=== PATIENT | male | born 1950 | race Caucasian/White ===

== ENCOUNTER → 2024-04-05 11:22 | Outpatient (REF) | payer OTHER, SELFPAY ==
--- NOTE | 2024-04-05 12:06 | CARDSERVLU ---
Echocardiogram with Lumason completed after protocol screening completed. Allergies verified.
Patent IV site: __new start 1st attempt RH 22 P___
IV site flushed with 0.9% NaCl pre and post administration.
Diluted bolus method utilized to enhance visualization of ventricular bain.
Total volume given: __3.5__ mL
Patient tolerated all procedures well without complications.
== END ==
LOC: RCS 11:22
PROVIDERS: ATTENDING PHYSICIAN Internal Medicine Cardiovascular Disease; FAMILY PHYSICIAN Family Medicine
DX: I49.3 Ventricular premature depolarization (principal); I47.29 Other ventricular tachycardia
CPT/HCPCS: 93306; Q9950

== ENCOUNTER 2024-04-22 06:43 | Day surgery (SDC) | payer OTHER, SELFPAY ==
[2024-04-19 09:16] VITALS: BMI 41.9
--- NOTE | 2024-04-19 09:44 | HPS.HSE ---
Family Physician
-
Family Physician: Matthew Moura
Chief Complaint
-
Cardiomyopathy.
History of Present Illness
The patient is a 73 year old male presenting today for newly diagnosed cardiomyopathy. He has a history of nonsustained ventricular tachycardia and frequent PVCs and PACs for which he experiences intermittent palpitations and shortness of
breath with bending over. He is on current pharmacological therapy with Metoprolol Succinate. He presented to the office in December 2023 asking to decrease the dosing of his Metoprolol. He also at that visit inquired about a cardiac catheterization
given his brother's recent diagnosis of severe coronary artery disease which required a cardiac bypass. Given all of this, the patient was advised to get an echocardiogram. His echocardiogram on 04/05/2024 revealed a moderately reduced left
ventricular ejection fraction of 35% (previously 55% on echocardiogram February 2023) and possible LAD territory hypokinesis. With these findings, it it recommended he proceed with a left cardiac catheterization at this time. He denies any current
complaints today such as chest pain, shortness of breath at rest, nausea, vomiting, diarrhea, lightheadedness, dizziness, cough, sore throat, or fever.
Medical History
Past Medical History
Past Medical History: Reports Other
Additional Past Medical History:
1. Cardiomyopathy, ejection fraction 35% per echocardiogram 04/05/2024.
2. Hypertension.
3. Hyperlipidemia.
4. Nonsustained ventricular tachycardia, on Metoprolol Succinate.
5. PACs and PVCs.
6. Right bundle branch block.
7. Mild mitral regurgitation.
8. Venous varicosities.
9. Chronic kidney disease stage 3.
10. Non-insulin dependent diabetes.
11. Colon polyps.
12. Remote diverticulitis.
13. Recurrent nephrolithiasis.
14. Remote bowel obstruction.
15. Lower GI bleed, approximately 5 years ago.
16. Probable TIA 2014.
17. Multilevel degenerative disc disease.
18. Osteoarthritis, status post bilateral total knee arthroplasty 2018.
19. Prostate cancer, 2020, status post radiation.
20. Squamous cell carcinoma, status post multiple Mohs.
21. Erectile dysfunction.
22. Mild hyperkalemia.
23. Morbidly obese, BMI 41.9.
24. History of alcohol abuse; sober since 2013.
Past Surgical History: Reports Other
Additional Past Surgical History:
1. Bilateral total knee arthroplasty.
2. Left rotator cuff repair.
3. MILD procedure.
4. Urolift.
5. Multiple lithotripsies.
6. Prostate biopsy.
7. Mohs x3.
8. Colonoscopy.
9. Endoscopy.
Social History
Tobacco: Non-smoker
Alcohol: Former (He has a history of alcohol abuse. He reportedly has been sober from alcohol over the last 10 years. )
Personal:
Living: Other (He lives in a 3 story home with his . )
Family History
Family History: Not pertinent
Allergies / Home Medications
Allergy/Medication List:
Home medications:
1. Aspirin 81 mg p.o. daily.
2. Atorvastatin 20 mg p.o. daily.
3. Cholecalciferol 125 mcg p.o. daily.
4. Jardiance 25 mg p.o. daily.
5. Mucinex 600 mg p.o. daily as needed.
6. Losartan 100 mg p.o. daily.
7. Metoprolol Succinate 100 mg p.o. daily.
8. Multivitamin 1 tablet p.o. daily.
9. Prevagen 1 dose p.o. daily.
10. Tramadol 50 mg p.o. daily as needed.
11. Super B complex 1 capsule p.o. daily.
Allergies: No known allergies.
Review of Systems
-
A 12 point ROS was completed and negative except as noted: Yes
Physical Exam
Vital Signs
Blood pressure 130/78. Heart rate 83. Respirations 18. Pulse ox 97% on room air.
Height 5 feet, 6 inches. Weight 117.8 kg. BMI 41.9.
Physical Exam
General: Well Developed, Well Nourished and No Apparent Distress
HEENT: NormoCephalic, Moist mucous membranes and Atraumatic
Respiratory: Clear
Cardiac: Regular Rhythm
GI: Soft, Non Tender, Non Distended and Other (Morbidly obese. )
Musculoskeletal: Normal Gait & Station
Skin: Warm and Dry
Neuro: AO x 3 and Nonfocal/grossly intact
Laboratory Results
-
DIAGNOSTIC STUDIES as of 04/19/2024: White blood cell count 9.1. Hemoglobin 16.3. Platelet count 232,000. Sodium 140. Potassium 5.2. BUN 40. Creatinine 2.0. Glucose 167. Calcium 9.4. AST 21. ALT 25. Albumin 4.2.
EKG 04/19/2024: Accelerated idioventricular rhythm. Right bundle branch block. T wave abnormality, consider inferolateral ischemia.
Echocardiogram 04/05/2024: Normal-appearing LV size with moderately reduced systolic function. Left ventricular ejection fraction is approximate 35% by visual estimation. Poor endocardial definition with possible LAD territory hypokinesis. Normal
right ventricular size and function. Mild mitral regurgitation. Compared to prior from February 27, 2023, ejection fraction is now moderately reduced estimated at approximately 35%, previously 55% with new possible LAD territory wall motion
abnormality.
Impression/Plan
-
IMPRESSION/PLAN:
1. Cardiomyopathy: The patient is in need of a left cardiac catheterization with Dr. Ar Joaquin on 04/22/2024. The benefits and risks of the procedure have been explained to the patient. The patient understands these risks and wishes to
proceed. He is aware to continue his baby Aspirin up to and including the morning of his catheterization. He will hold Jardiance pre-operatively as advised by his cardiology office.
[2024-04-19 10:03] LABS: % Basophils 0.9 % (0-2); % Eosinophils 1.5 % (0-6); % Immature Granulocytes 0.7 % (0-0.5); % Lymphocytes 24.7 % (20.5-51.1); % Monocytes 8.9 % (1.7-9.3); % Neutrophils 63.3 % (42.2-75.2); Absolute Basophils 0.1 10^3/uL (0-0.2); Absolute Eosinophils 0.1 10^3/uL (0-0.7); Absolute Immature Granulocytes 0.1 10^3/uL (0-0.05); Absolute Lymphocytes 2.2 10^3/uL (1.2-3.4); Absolute Monocytes 0.8 10^3/uL (0.1-0.6); Absolute Neutrophils 5.7 10^3/uL (1.4-6.5); Hematocrit 49.7 % (39.0-52.0); Hemoglobin 16.3 g/dL (13.0-18.0); Mean Corp Hgb Conc. 32.8 g/dL (33.0-37.0); Mean Corpuscular Hgb 30.4 pg (27.0-31.0); Mean Corpuscular Volume 92.7 fL (80.0-94.0); Mean Platelet Volume 10.6 fL (7.4-10.4); Nucleated Red Blood Cells % 0 % (-); Platelet Count 232 10^3/uL (130-400); Red Blood Cell Count 5.36 10^6/uL (4.70-6.10); Red Cell Dist. Width 13.9 % (11.5-14.5); White Blood Cell Count 9.1 10^3/uL (4.8-10.8)
[2024-04-19 10:23] LABS: ALT (SGPT) 25 U/L (0-50); AST (SGOT) 21 U/L (17-59); Albumin 4.2 g/dl (3.5-5.0); Alkaline Phosphatase 62 U/L (38-126); Blood Urea Nitrogen 40 mg/dl (9-20); Calcium 9.4 mg/dl (8.4-10.2); Carbon Dioxide 22 mmol/L (22-30); Chloride 107 mmol/L (98-107); Estimated Creatinine Clearance 41 ml/min; Glucose 167 mg/dl (70-99); Potassium 5.2 mmol/L (3.5-5.1); Sodium 140 mmol/L (135-145); Total Bilirubin 0.5 mg/dl (0.2-1.3); Total Protein 6.7 g/dl (6.3-8.2); eGFR 35.02
[2024-04-22] VITALS (19 sets, daily range): BP systolic 94–156; BP diastolic 60–117; BMI 41.8
[2024-04-22 07:28] LABS: Glucose - Point of Care 156 mg/dl (70-99)
[2024-04-22 09:40] LABS: ACT-LR - POC 297 Seconds (116-155)
[2024-04-22] MEDS: NSS 1000 IV (10:00)
--- NOTE | 2024-04-22 10:11 | ITS.CL.PN ---
Binder Technician - Procedure Note
Procedure
Procedure Note:
CARDIAC CATHETERIZATION REPORT
Date of Procedure: 04/22/24
Referring: Dr. Arturo Woods MD
Indication: new cardiomyopathy
PROCEDURE:
1. Right heart catheterization
2. Left heart catheterization
3. Coronary angiography
4. IVUS left main
ACCESS:
6 Nepalese right radial artery
5 Nepalese right antecubital vein
CATHETERS:
1. 5 Nepalese balloon wedge
2. 6 Nepalese JL3.5
3. 6 Nepalese JR4
4. 6 Nepalese XB3.5 guide
HEMODYNAMIC DATA
LV 120/15 (EDP 20) mmHg
AO 119/88 (mean 102) mmHg
RA 19
RV 42/14 (EDP 20) mmHg
PA 41/27 (mean 31) mmHg
PCWP 22 mmHg
CO/CI 4.9/2.2 L/min/m2
SVR 1348 dsc*-5
PVR 2.2 Wood units
CORONARY ANGIOGRAPHY
LM: large vessel with severe 80% distal left main disease.
LAD: large vessel giving rise to a small high-rising D1/ramus, large D2. There is a focal 80% stenosis in the LAD just after D2 and diffuse moderate disease throughout the mid-distal LAD. The D2 has mild disease. There is diffuse mild-moderate
disease in the D1/ramus including a focal 70% stenosis in the proximal aspect of it's superior branch.
LCx: large vessel giving rise to a small OM1, large OM2, and small OM3. There appears to be focal, mild-moderate disease in the LCx ostium. There is a 80-90% stenosis in the proximal aspect of the large OM2. There is otherwise mild disease.
RCA: large vessel giving rise to a small RPDA and several small RPL branches. There was mild catheter damping on engagement and evidence of 50% ostial stenosis. There is otherwise diffuse mild disease.
RADIATION:
Radiation dose (mGy): 832 mGy
DAP (cm2.Gy): 59
Fluoroscopy time (minutes): 8.2
IVUS of left main
A Runthrough coronary wire was placed in the distal LCx. IVUS of the left main was performed. The catheter was unable to be passed through the distal LAD lesion, demonstrating it to be definitively severe. The proximal to mid vessel demonstrate no
significant disease.
CONCLUSIONS:
1. Severe multivessel coronary artery disease.
2. Elevated biventricular filling pressures, moderate pulmonary hypertension, and
RECOMMENDATIONS:
1. Expectant management after cardiac catheterization via [right] approach.
2. Aggressive secondary prevention of CAD.
3. Referral for CABG given relatively young age, diabetes, reduced EF, and high complexity coronary artery disease. Ideally, would receive a MCCORMICK-LAD and grafts to the large D2, large OM2, and possibly the RPDA (suggestion of moderate ostial disease
but RPDA is a small target). Percutaneous revascularization would require complex distal left main bifurcation stenting and additional stenting to the mid-LAD, OM2 and possibly ostial RCA; this would be a technically feasible but likely inferior
option to surgery. If RPDA grafting cannot be accomplished, ostial RCA stenting could be performed percutaneously down the line.
Copy to: Dr. Frederick Woods (flexible machining system machinist); Dr. Matthew Moura (PCP)
Signed: Ar Joaquin MD, PhD
--- NOTE | 2024-04-22 11:44 | PTCARENOTE ---
Dr Joaquin at pt bedside speaking to pt and pt's daughter.
== END 2024-04-22 13:20 | disposition home or self-care (01) ==
LOC: CATH 06:43
PROVIDERS: ATTENDING PHYSICIAN Student in an Organized Health Care Education/Training Program; FAMILY PHYSICIAN Family Medicine; OTHER PHYSICIAN Internal Medicine Cardiovascular Disease
DX: I25.10 Atherosclerotic heart disease of native coronary artery without angina pectoris (principal); I42.9 Cardiomyopathy, unspecified; I47.20 Ventricular tachycardia, unspecified; R06.02 Shortness of breath; I12.9 Hypertensive chronic kidney disease with stage 1 through stage 4 chronic kidney disease, or unspecified chronic kidney disease; E11.22 Type 2 diabetes mellitus with diabetic chronic kidney disease; N18.30 Chronic kidney disease, stage 3 unspecified; E78.5 Hyperlipidemia, unspecified; I45.10 Unspecified right bundle-branch block; I27.20 Pulmonary hypertension, unspecified; E66.01 Morbid (severe) obesity due to excess calories; Z68.41 Body mass index [BMI] 40.0-44.9, adult; Z85.46 Personal history of malignant neoplasm of prostate; Z85.828 Personal history of other malignant neoplasm of skin; Z79.82 Long term (current) use of aspirin; Z79.84 Long term (current) use of oral hypoglycemic drugs
CPT/HCPCS: 92978; C1769; C1894; C1887; C1753; 36415; 80053; 82962; 85025; 85347; 93005; 93458; Q9967

== ENCOUNTER → 2024-05-03 13:16 | Outpatient (REF) | payer OTHER, SELFPAY | LOC: HWRAD 13:16 | PROVIDERS: ATTENDING PHYSICIAN Thoracic Surgery (Cardiothoracic Vascular Surgery); FAMILY PHYSICIAN Family Medicine | DX: I25.10 Atherosclerotic heart disease of native coronary artery without angina pectoris (principal); Z01.818 Encounter for other preprocedural examination | CPT/HCPCS: 71250 ==

== ENCOUNTER 2024-05-18 05:06 | Inpatient (IN) | payer OTHER, SELFPAY ==
[2024-04-26 08:48] VITALS: BMI 41.0
[2024-04-26 09:47] LABS: % Basophils 0.7 % (0-2); % Eosinophils 1.8 % (0-6); % Immature Granulocytes 0.5 % (0-0.5); % Lymphocytes 21.4 % (20.5-51.1); % Monocytes 8.9 % (1.7-9.3); % Neutrophils 66.7 % (42.2-75.2); Absolute Basophils 0.1 10^3/uL (0-0.2); Absolute Eosinophils 0.2 10^3/uL (0-0.7); Absolute Immature Granulocytes 0.1 10^3/uL (0-0.05); Absolute Lymphocytes 2.2 10^3/uL (1.2-3.4); Absolute Monocytes 0.9 10^3/uL (0.1-0.6); Absolute Neutrophils 6.7 10^3/uL (1.4-6.5); Hematocrit 47.8 % (39.0-52.0); Hemoglobin 16.2 g/dL (13.0-18.0); Mean Corp Hgb Conc. 33.9 g/dL (33.0-37.0); Mean Corpuscular Hgb 31.3 pg (27.0-31.0); Mean Corpuscular Volume 92.5 fL (80.0-94.0); Mean Platelet Volume 11.1 fL (7.4-10.4); Nucleated Red Blood Cells % 0 % (-); Platelet Count 237 10^3/uL (130-400); Red Blood Cell Count 5.17 10^6/uL (4.70-6.10); Red Cell Dist. Width 14.3 % (11.5-14.5); White Blood Cell Count 10.1 10^3/uL (4.8-10.8)
[2024-04-26 09:50] LABS: INR 0.95
[2024-04-26 09:51] LABS: Urine Albumin 2+ (Neg - Trace); Urine Bilirubin Negative (Negative); Urine Character Clear (Clear); Urine Color Yellow; Urine Glucose 3+ (Negative); Urine Ketone Negative (Negative); Urine Leukocyte Negative (Negative); Urine Nitrite Negative (Negative); Urine Occult Blood Negative (Negative); Urine Specific Gravity 1.015 (<1.030); Urine Urobilinogen Negative (Neg - 1+)
[2024-04-26 09:51] LABS: APTT 28.1 Sec (23.4-35.0)
[2024-04-26 10:23] LABS: ALT (SGPT) 25 U/L (0-50); AST (SGOT) 24 U/L (17-59); Albumin 4.2 g/dl (3.5-5.0); Alkaline Phosphatase 62 U/L (38-126); Blood Urea Nitrogen 31 mg/dl (9-20); Calcium 9.5 mg/dl (8.4-10.2); Carbon Dioxide 24 mmol/L (22-30); Chloride 104 mmol/L (98-107); Direct Bilirubin 0.2 mg/dl (0.0-0.4); Estimated Creatinine Clearance 46 ml/min; Glucose 153 mg/dl (70-99); Potassium 5.2 mmol/L (3.5-5.1); Sodium 138 mmol/L (135-145); Total Bilirubin 0.7 mg/dl (0.2-1.3); Total Protein 6.7 g/dl (6.3-8.2); eGFR 39.75
[2024-04-26 10:44] LABS: Urine Amorphous Seen; Urine Squamous Cell 0-2 /LPF (Few)
[2024-04-26 10:45] LABS: Urine Hyaline Cast 0-2 /LPF (0-2)
[2024-04-26 10:46] LABS: Urine Red Blood Cell 0-2 /HPF (0-2); Urine White Cell 0-2 /HPF (0-5)
--- NOTE | 2024-04-26 11:13 | CM ---
spoke to pt in PAT, we discussed preop CABG teaching including sternal and driving restrictions. he is prev indep, lives with his in a 2 story home with 1 step to he denies any dme's. he is agreeable to a f/u visit from the ct transitional
care nurse after dc. plan is for CABG 05/18, cm role explained and all questions answered.
[2024-04-26 11:46] LABS: Glycohemoglobin (HgbA1c) 6.8 % (4.0-5.6)
[2024-05-18] VITALS (22 sets, daily range): BP systolic 79–134; BP diastolic 51–90; BMI 41.2
[2024-05-18] MEDS: BACTROBAN 2% OINTMENT 1 APPLIC NASAL ×2 (05:45→21:44)
[2024-05-18] MEDS: TOPROL XL 100 MG PO (05:45)
[2024-05-18] MEDS: PROTONIX 40 MG PO (05:45)
[2024-05-18] MEDS: MAGNESIUM OXIDE 500 MG PO (05:45)
--- NOTE | 2024-05-18 06:00 | PTCARENOTE ---
pt admitted into room 2263. VS and weight obtained. pt confirms 2 showers @ home and NPO since midnight. admission questions and med rec completed. clip prep and CHG cloth bath done. bilateral groin rash and penile rash noted--CT RADHA Reyez aware
and assessed pt at bedside. ABO drawn and sent. ordered pre-op meds given. all questions answered. at bedside. environmental health technologist to CVOR.
[2024-05-18 07:40] LABS: Urine Albumin 2+ (Neg - Trace); Urine Bilirubin Negative (Negative); Urine Character Clear (Clear); Urine Color Yellow; Urine Glucose 1+ (Negative); Urine Ketone Negative (Negative); Urine Leukocyte Negative (Negative); Urine Nitrite Negative (Negative); Urine Occult Blood Negative (Negative); Urine Urobilinogen Negative (Neg - 1+)
[2024-05-18 07:58] LABS: ACT+ - POC 107 Seconds (82-134)
[2024-05-18 07:59] LABS: B.E. - POC -4.8 mmol/L; Glucose - POC 165 mg/dl (70-99); HCO3 - POC 22 mmol/L (21-28); Hematocrit - POC 46 % PCV (42-52); Hemodilution- POC No; Hemoglobin Calculated - POC 15.6; Ionized Calcium - POC 1.25 mmol/L (1.15-1.33); Lactate - POC 1.15 mmol/L (0.36-0.75); O2 Saturation %Calculated-POC 99.4 % (94-98); PCO2 - POC 45 mmHg (35-48); PO2 - POC 172 mmHg (83-108); Potassium - POC 4.3 mmol/L (3.5-5.1); Sodium - POC 141 mmol/L (136-145); Specimen Type - POC Arterial
[2024-05-18 08:00] LABS: Urine Bacteria Few (Negative); Urine Granular Cast 0-2 /LPF (0); Urine Red Blood Cell 0-2 /HPF (0-2)
--- NOTE | 2024-05-18 08:21 | CM ---
Reviewed chart. Mr. Ybarra is in the operating room today. Prior to admission he resides with his spouse in a two story home with one step to enter. Prior to admission he was independent in ambulation and adls. He does not have any DME in the
home. Medical work-up in progress. The discharge plan is to retrun home with his spouse and a home visit by the Transitional Care Nurse when medically stable.
[2024-05-18 09:53] LABS: ACT+ - POC 643 Seconds (82-134)
[2024-05-18 10:30] LABS: ACT+ - POC 504 Seconds (82-134)
[2024-05-18 10:52] LABS: B.E. - POC 0.1 mmol/L; Glucose - POC 200 mg/dl (70-99); HCO3 - POC 27 mmol/L (21-28); Hematocrit - POC 33 % PCV (42-52); Hemodilution- POC Yes; Hemoglobin Calculated - POC 11.4; Ionized Calcium - POC 1.06 mmol/L (1.15-1.33); Lactate - POC 1.49 mmol/L (0.36-0.75); O2 Saturation %Calculated-POC 99.8 % (94-98); PCO2 - POC 56 mmHg (35-48); PO2 - POC 281 mmHg (83-108); Potassium - POC 5.3 mmol/L (3.5-5.1); Sodium - POC 139 mmol/L (136-145); Specimen Type - POC Arterial
[2024-05-18 10:57] LABS: ACT+ - POC 672 Seconds (82-134)
[2024-05-18 11:14] LABS: B.E. - POC -2.7 mmol/L; Glucose - POC 211 mg/dl (70-99); HCO3 - POC 23 mmol/L (21-28); Hematocrit - POC 38 % PCV (42-52); Hemodilution- POC Yes; Hemoglobin Calculated - POC 12.8; Ionized Calcium - POC 1.09 mmol/L (1.15-1.33); Lactate - POC 1.68 mmol/L (0.36-0.75); PCO2 - POC 43 mmHg (35-48); PO2 - POC 417 mmHg (83-108); Potassium - POC 4.7 mmol/L (3.5-5.1); Sodium - POC 139 mmol/L (136-145); Specimen Type - POC Arterial; pH - POC 7.34 (7.35-7.45)
[2024-05-18 11:21] LABS: ACT+ - POC 513 Seconds (82-134)
[2024-05-18 11:59] LABS: ACT+ - POC 435 Seconds (82-134)
[2024-05-18 12:00] LABS: B.E. - POC -3.5 mmol/L; Glucose - POC 175 mg/dl (70-99); HCO3 - POC 23 mmol/L (21-28); Hematocrit - POC 35 % PCV (42-52); Hemodilution- POC Yes; Ionized Calcium - POC 1.11 mmol/L (1.15-1.33); Lactate - POC 2.04 mmol/L (0.36-0.75); PCO2 - POC 44 mmHg (35-48); PO2 - POC 436 mmHg (83-108); POC Comment WARM; Potassium - POC 4.5 mmol/L (3.5-5.1); Sodium - POC 141 mmol/L (136-145); Specimen Type - POC Arterial; pH - POC 7.32 (7.35-7.45)
[2024-05-18 12:27] LABS: ACT+ - POC 530 Seconds (82-134)
[2024-05-18 12:28] LABS: B.E. - POC -2.5 mmol/L; Glucose - POC 188 mg/dl (70-99); HCO3 - POC 23 mmol/L (21-28); Hematocrit - POC 34 % PCV (42-52); Hemodilution- POC Yes; Hemoglobin Calculated - POC 11.4; Ionized Calcium - POC 1.07 mmol/L (1.15-1.33); Lactate - POC 3.23 mmol/L (0.36-0.75); O2 Saturation %Calculated-POC 99.6 % (94-98); PCO2 - POC 39 mmHg (35-48); PO2 - POC 191 mmHg (83-108); Potassium - POC 4.8 mmol/L (3.5-5.1); Sodium - POC 141 mmol/L (136-145); Specimen Type - POC Arterial; pH - POC 7.37 (7.35-7.45)
[2024-05-18 13:12] LABS: ACT+ - POC 93 Seconds (82-134)
[2024-05-18 13:14] LABS: B.E. - POC -5.5 mmol/L; Glucose - POC 173 mg/dl (70-99); HCO3 - POC 20 mmol/L (21-28); Hematocrit - POC 35 % PCV (42-52); Hemodilution- POC Yes; Lactate - POC 3.35 mmol/L (0.36-0.75); O2 Saturation %Calculated-POC 96.2 % (94-98); PCO2 - POC 40 mmHg (35-48); PO2 - POC 90 mmHg (83-108); POC Comment POST; Sodium - POC 143 mmol/L (136-145); Specimen Type - POC Arterial; pH - POC 7.32 (7.35-7.45)
[2024-05-18 13:27] LABS: ACT+ - POC 96 Seconds (82-134)
[2024-05-18 13:33] LABS: B.E. - POC -0.4 mmol/L; Glucose - POC 171 mg/dl (70-99); HCO3 - POC 25 mmol/L (21-28); Hematocrit - POC 34 % PCV (42-52); Hemodilution- POC Yes; Hemoglobin Calculated - POC 11.5; Ionized Calcium - POC 1.22 mmol/L (1.15-1.33); Lactate - POC 3.22 mmol/L (0.36-0.75); O2 Saturation %Calculated-POC 95.2 % (94-98); PCO2 - POC 41 mmHg (35-48); PO2 - POC 78 mmHg (83-108); Potassium - POC 3.8 mmol/L (3.5-5.1); Sodium - POC 146 mmol/L (136-145); Specimen Type - POC Arterial; pH - POC 7.39 (7.35-7.45)
[2024-05-18] MEDS: NEURONTIN PO ×2 (13:51→15:27)
[2024-05-18] MEDS: TYLENOL PO ×2 (13:52→22:21)
--- NOTE | 2024-05-18 14:07 | CON.INTV ---
Consultation
Consultation Request
Date/Time Consultation Requested: 05/18/2024-2:15 PM
Date/Time Consultation Performed: 05/18/2024-2:30 PM
Requesting Provider: Dr. Eubanks
Performing Provider: Dr. Mcleod
Reason for Consultation: Postoperative ventilator/critical care management
Medical History
-
Chief Complaint: CAD
History of Present Illness:
73-year-old obese male with a history of hypertension, hyperlipidemia, chronic kidney disease, cardiomyopathy, GI bleed, alcoholic in recovery, and diabetes found to have significant multivessel CAD and underwent CABG-pulmonary was consulted for
postoperative ventilator/critical care management 05/18/2024. Patient is seen postoperatively and he is sedated on the ventilator and review of systems is unobtainable. Operative records were reviewed, chest tube output was reviewed, pressors and
line data were all reviewed.
Past Medical History
Past Medical History: None (Hypertension. Hyperlipidemia. Renal calculi. Diabetes. Alcoholic in recovery. Prostate cancer. TIA. Chronic kidney disease stage III. GI bleed. Diverticulosis. Morbid obesity.)
Past Surgical History: None (Bilateral knee replacement 2018. UroLift 2019. Facial surgery 2021. Left rotator cuff repair. Prostate biopsy. Mohs surgery x 3. Multiple lithotripsies.)
Social History
Tobacco: Non-smoker
Alcohol: Former (None since 2013)
Drug: None
Personal:
Living: With Family
Occupational Exposures: No known asbestos exposure
Environmental Exposures: No known tuberculosis exposure
Family History
Family History: Other (Siblings with CAD. Father-CVA. Mother COPD. Brother-diabetes COPD and obesity.)
Allergies / Home Medications
Allergies
Allergy/AdvReac Type Severity Reaction Status Date / Time
No Known Allergies Allergy Verified 04/25/24 14:59
Home Medications
�Medication �Instructions �Recorded �Confirmed �Last Taken �Type
Prevagen 1 dose PO DAILY 04/15/24 05/18/24 05/12/24 History
cholecalciferol (vitamin D3) 125 125 mcg PO DAILY 04/15/24 05/18/24 05/12/24 History
mcg (5,000 unit) tablet (Vitamin
D3)
empagliflozin 25 mg tablet 25 mg PO DAILY 04/15/24 05/18/24 05/13/24 History
(Jardiance)
losartan 100 mg tablet 100 mg PO DAILY 04/15/24 05/18/24 05/14/24 History
metoprolol succinate 100 mg 100 mg PO DAILY 04/15/24 05/18/24 05/17/24 09:00 History
tablet,extended release 24 hr
multivitamin 1 tab PO DAILY 04/15/24 05/18/24 05/12/24 History
vitamin B complex 1 cap PO DAILY 04/15/24 05/18/24 05/12/24 History
aspirin 81 mg chewable tablet 81 mg PO DAILY 04/19/24 05/18/24 05/17/24 09:00 History
guaifenesin 600 mg tablet, 600 mg PO DAILYPRN PRN congestion 04/19/24 05/18/24 05/17/24 09:00 History
extended release 12 hr (Mucinex)
tramadol 50 mg tablet 50 mg PO DAILYPRN PRN pain 04/19/24 05/18/24 04/20/24 History
atorvastatin 40 mg tablet 40 mg PO QPM #90 tabs 04/22/24 05/18/24 05/17/24 18:00 Rx
fluticasone propionate 50 1 spray intranasal BIDPRN PRN 04/22/24 05/18/24 05/17/24 09:00 History
mcg/actuation nasal congestion
spray,suspension (Flonase Allergy
Relief)
nitroglycerin 0.4 mg sublingual 0.4 mg sublingual [id number] PRN 04/22/24 05/18/24 05/17/24 09:00 Rx
tablet chest pain #25 tabs
Review of Systems
-
Unable to Obtain full review of systems at this time due to: Other (Per HPI)
Vitals / Labs / Diagnostic Testing
Vital Signs
Temp Pulse Resp BP Pulse Ox
97.4 F 75 18 134/83 96
05/18/24 05:13 05/18/24 05:13 05/18/24 05:13 05/18/24 05:15 05/18/24 05:14
Diagnostic Testing:
Physical Exam
-
Exam:
Well-nourished and well-developed in no apparent distress
HEENT-atraumatic, normocephalic, oral tracheal intubation
Heart-regular rate and rhythm-no murmurs, rubs or gallops
Chest-clear to auscultation, no wheezes, crackles, median sternotomy bandage is not removed
Abdomen soft nondistended
Extremities-no cyanosis, clubbing, edema and good peripheral pulses
Integument-intact, no rashes, lesions or ecchymosis
Neurologically not alert, not oriented, not moving any of his extremities sedated on a ventilator
Assessment
-
73-year-old obese male with a history of hypertension, hyperlipidemia, chronic kidney disease, cardiomyopathy, GI bleed, alcoholic in recovery, and diabetes found to have significant multivessel CAD and underwent CABG-pulmonary was consulted for
postoperative ventilator/critical care management 05/18/2024.
Multivessel coronary artery disease with preoperative reduced EF 35%
Status post CABG x 3-Hyacinth-LAD, GSV-D2, GSV-OM-Dr. Eubanks-05/18/2024
Conditions present prior to admission:
Hypertension.
Hyperlipidemia.
Renal calculi.
Diabetes.
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
Prostate cancer.
TIA.
Chronic kidney disease stage III.
GI bleed-2019
Diverticulosis.
Colon polyps
Remote diverticulitis
Recurrent nephrolithiasis
Remote bowel obstruction
Morbid obesity.
Bilateral knee replacement 2018. UroLift 2019. Facial surgery 2021. Left rotator cuff repair. Prostate biopsy. [facility] [place]. Multiple lithotripsies.
Plan
Ventilator settings reviewed
FiO2 will be weaned
Minute ventilation will be adjusted
Arterial blood gases will be monitored
Spontaneous breathing trial will be attempted with hopeful extubation after anesthesia/sedation wear off
Pulmonary artery catheter parameters will be followed
Pressors/antihypertensive/inotropes/diuretics will be provided as needed
Monitor chest tube output
Monitor hemoglobin
Monitor platelet count and coags
Transfuse blood product if needed
CT surgery following chest tubes
Monitor blood sugar
Insulin drip per protocol
Aspiration precautions
VAP prevention protocol
DVT prophylaxis
Early nutrition
Early mobilization
Patient is at significant risk for obstructive sleep apnea-recommend outpatient evaluation-will leave information on chart
Critical care statement: A total of 55 minutes of critical care time was provided for this patient today. This includes management of ventilator, spontaneous breathing trial, arterial blood gases, pressors, of unstable vital signs, evaluation of the
patient at bedside, reviewing the patient's pertinent medical records including radiographs, microbiology, laboratory evaluations, and discussion with primary team and critical care nursing.
Diagnostic data:
CT chest 05/03/2024-severe coronary artery calcifications, no lung consolidations, effusions, pneumothorax, masses or nodules
Spirometry 04/22/2024-FEV1 1.84-64%, FVC 2.39-64%, mild to moderate restriction.
Nuclear stress test 03/12/2021-EF 50%, moderate risk study ischemia suspected
Echocardiogram 04/05/2024-EF 35%, mild mitral regurgitation,
Cardiac catheterization 04/22/2024-severe multivessel CAD, RA 19, PA 41/27, PCWP-22, cardiac index 2.2
Data Reviewed
-
PFT: Report reviewed by me
EKG: Report reviewed by me
Radiology: Image personally visualized and interpreted and Report reviewed by me
CT Scan: Report reviewed by me
Medical Tests (Nuc Med, Echo etc): Report reviewed by me
Labs: Labs reviewed by me
Old Records: Reviewed
Critical Care Time (in minutes): 55
--- NOTE | 2024-05-18 14:31 | W.CVOR.SURPR ---
CVOR Surgeon Immed Pre Op
-
I have examined this patient prior to performance of the scheduled procedure.
The patient's condition is unchanged from the time of the dictated/written History and
Physical and the patient is able to undergo the scheduled procedure.
--- NOTE | 2024-05-18 14:31 | W.IMMPOSTOP ---
Addendum entered and electronically signed by Lico Eubanks MD 05/18/24 16:30:
[id number]
Original Note:
Surgical Immed Post Op Note
-
CARDIAC SURGERY OPERATIVE NOTE:
Preoperative Dx:
MVCAD
Morbid obesity (BMI 41.1)
Cardiomyopathy w/ reduced LVEF (35%)
Mild mitral regurgitation
CKD III (baseline creat (1.6-2.0)
DM II (Hgb A1c 6.8)
BBB w/ PACs & PVCs
Postoperative Dx:
Same
Profoundly calcified coronary arteries
Procedures:
1) Median sternotomy
2) Takedown of AUGUSTO (narrow pedicle)
3) CABG x 3 (AUGUSTO to LAD, GSV to D2, GSV to OM)
4) GSV to D2 required coronary endarterectomy secondary to plaque disruption after arteriotomy
5) ELAA w/ 45mm AtriClip
Surgeon:
Lico Eubanks M.D.
Accounting Practice Manager:
Ladan Schulte P.A.-C.
Anesthesia:
Yonatan Raygoza M.D. and Alyssa WileyR.N.A.
Perfusion:
Alyssa TysonCRanjithPRanjith; XC: 143min, CPB: 100min
Findings:
AUGUSTO was a very healthy appearing vessel w/ ELD 3.5mm w/ very brisk blood flow
GSV was a healthy appearing conduit w/ ELD 3.5mm
LAD was obscured by epicardial adipose tissue throughout its course, midpoint exposure demonstrated fairly dense closely spaced calcifications. A spot amendable to bypass was present at the distal midpoint w/ posterior calcifications present
opposite the arteriotomy. ELD at this location 2.5mm, normal anterior bain.
D2 was visible on the epicardial surface. This vessel was also densely calcified throughout its course. There was a spot on its distal midpoint that appeared amenable to bypass. Controlled arteriotomy performed and anastomosis initiated. There
was plaque present in the lateral wall and heel of the vessel at the arteriotomy. This plaque had a significant fracture during completion of the anastomosis. Anastomosis taken down. Coronary endarterectomy required. Arteriotomy extending.
Anastomosis reperformed over 1.5mm shunt. Good flow on hand injection and on postop transit-time U/S flow probe assessment.
OM was visible on the epicardial surface. Scant scattered calcifications. ELD 2.5mm. Good flow on hand injection and on postop transit-time U/S flow probe assessment.
ANNA with shallow windsock morphology, excluded at its base w/ 45mm AtriClip
Post-DAVID: LVEF 35%, unchanged MR
Complications:
Plaque fracture at D2 arteriotomy requiring endarterectomy
Postoperative coagulopathy requiring PLT transfusion
Right ear w/ pressure injury from unknown source upon takedown of dressings
Transfusions:
1pk PLTS
Implants:
CT x 4 (B/L pleural, inferior mediastinal, superior mediastinal)
Epicardial pacing wires x 2 (V)
Sternal wires x 7
Sternal 'X' plate w/ 8 - 14mm screws
Sternal 'Square' plate w/ 4 - 12mm screws
Condition:
Stable/guarded to CV[facility]
Levo 4, precedex 0.5, dobutamine 3, insulin 1
80 V-paced, 97/62, CO/CI: 4.72/2.08
--- NOTE | 2024-05-18 15:00 | PTCARENOTE ---
Pt received from CVOR. Pt intubated and sedated on precedex gtt. PERRLA 3mm brisk and reactive. Unresponsive at this time. Intubated with 8.0 ETT, 21cm at the lip. SIMV 40% 12 550 5/5 POX 93%. Lungs clear anteriorly. Moderate amount of clear sputum
from oral cavity. Mediastinal chest tubes x2 y-sited to 1 atrium to -20cm suction draining red fluid. Right and left pleural chest tubes y-sited to 1 atrium to -20cm suction draining red fluid. No air leak, tidaling, crepitus noted. SR with 1st
degree AVB with rates in the 50s. BP supported with levophed. CI 1.86. PA pressures 40s/30s, CVP 14-16. Epicardial v-wire to back up 50/10/0.8 with occasional paced beats. Bilateral radial and DP pulses palpable. No edema noted. Abdomen soft, round,
obese, nontender. Hypoactive BS. [place] catheter intact draining adequate amounts of blood tinged urine. Sternal incision covered with Antibacterial dressing, small area of drainage outlined. Chest tube dressing CDI. Right groin puncture site
approximated, WILEY. Right knee incision approximated with skin glue, covered with ILA-CDI. Right IJ cordis intact with swan floated to 46cm. Right hand 20g PIV intact. CT TREE TAPPING LABORER made aware of CI, MVO2 obtained. See MAR for medication administration. See
worklist for complete nursing assessment. Post-op EKG, labs, and CXR obtained.
Gtts:
Dobutamine 3mcg/kg/min
Levophed 4mcg/min
Precedex 0.5mcg/kg/hr
NSS KVO
Insulin per Critical Care Glycemic Protocol
[2024-05-18 15:08] LABS: B.E. -4.5 mmol/L; HCO3 22.1 mmol/L (21-28); Hematocrit 36.2 % (39.0-52.0); Hemoglobin 12.2 g/dL (13.0-18.0); O2 Saturation % 96.7 % (94-98); PCO2 46 mmHg (35-48); PO2 94 mmHg (83-108); Platelet Count 127 10^3/uL (130-400); Potassium 4.4 mMOL/L (3.5-5.1); Sodium 136 mMOL/L (136-145); pH 7.29 (7.35-7.45)
[2024-05-18 15:10] LABS: Glucose - Point of Care 208 mg/dl (70-99)
--- NOTE | 2024-05-18 15:15 | PTCARENOTE ---
RT at bedside to adjust RR to 16 due to respiratory acidosis.
[2024-05-18 15:17] LABS: INR 1.25; PT 16.3 Sec (11.4-14.6)
[2024-05-18 15:18] LABS: APTT 31.4 Sec (23.4-35.0)
[2024-05-18] MEDS: PACERONE PO (15:27)
[2024-05-18] MEDS: ANCEF 10 IV ×2 (15:27)
[2024-05-18] MEDS: NSS 500 IV (15:27)
[2024-05-18] MEDS: DILAUDID 0.5 MG IV (15:27)
[2024-05-18 15:44] LABS: Mixed Venous O2 Saturation 67.3 %
[2024-05-18] MEDS: VERSED 0.5 MG IV ×2 (15:50→16:05)
--- NOTE | 2024-05-18 16:00 | PTCARENOTE ---
RT at bedside to advance ETT 2cm. Now 23cm at the lip. Repeat CXR obtained.
--- NOTE | 2024-05-18 16:00 | RESPNOTE ---
Addendum entered by Meera Valdez, RT 05/18/24 18:07:
ERROR IN DOCUMENTATION:
ETT was advanced by 2cm from 22 to 24 at the lips.
Original Note:
ETT pulled back by 2cm. now 24@ the lips.
[2024-05-18 16:06] LABS: Glucose - Point of Care 189 mg/dl (70-99)
--- NOTE | 2024-05-18 16:15 | W.PN.CD ---
Addendum entered and electronically signed by Shane Marcial MD 05/18/24 17:10:
I saw and examined the patient.
The AREA ATTENDANT's note was reviewed and I agree with the note.
Comment:
73 y/o male (follows with Dr. Woods) with hypertension, obesity, CKD, NSVT, PVC's, atrial ectopy, RBBB. OP monitor revealed AIVR as predominant rhythm. Echo done and revealed EF 35%. Cath done and showed severe multivessel coronary artery disease
and he is now s/p CABG x 3 (AUGUSTO to LAD, GSV to D2, GSV to OM), GSV to D2 required coronary endarterectomy secondary to plaque disruption after arteriotomy, ELAA w/ 45mm AtriClip- Dr. Eubanks 05/18/23. At the time of my evaluation he is intubated,
sedated, and on norepinephrine and dobutamine. We will plan to follow along and add back GDMT as tolerated. Continue routine postoperative care per CT surgery.
Original Note:
Today's Communication / Plan
-
-close post-op monitoring and care with weaning of drips and vent as tolerated per CT surgery/CVICU protocol
Impression / Plan
-
73 y/o male (follows with Dr. Woods) with hypertension, obesity, CKD, NSVT, PVC's, atrial ectopy, RBBB. OP monitor revealed AIVR as predominant rhythm. Echo done and revealed EF 35%. Cath done and showed severe multivessel coronary artery disease
and he is now s/p CABG.
Severe multivessel CAD:
-now s/p CABG x 3 (AUGUSTO to LAD, GSV to D2, GSV to OM), GSV to D2 required coronary endarterectomy secondary to plaque disruption after arteriotomy, ELAA w/ 45mm AtriClip- Dr. Eubanks 05/18/23
-intubated and ventilated post-operatively
-remains on dobutamine and Levophed post-op, both of which require intensive monitoring
-post-op EKG SB with 1st degree AVB, PVC, V paced complex, IVCD. Tele SB.
-intra-op DAVID EF 30-35%
-CT's, ulloa, pacer wire in place
-s/p 1 pk platelets
-ASA, statin, BB when able
ICM:
-EF 30-35%
-GDMT as able once recovered- on BB, ARB, Jardiance as OP
-monitor volume
hx AIVR, RBBB:
-monitor telemetry
CKD:
-monitor post-op
Obesity:
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
DM:
-post-op, on insulin per protocol
Physical Exam
Vital Signs/Labs
Vital Signs
Temp Pulse Resp BP Pulse Ox
98.0 F 55 16 109/62 98
05/18/24 16:00 05/18/24 16:10 05/18/24 16:10 05/18/24 16:00 05/18/24 16:10
05/17/24 05/18/24 05/19/24
06:59 06:59 06:59
Actual Weight 119.1 kg
PT 16.3 Sec (11.4-14.6) H 05/18/24 14:56
INR 1.25 05/18/24 14:56
APTT 31.4 Sec (23.4-35.0) 05/18/24 14:56
Magnesium Cancelled 05/18/24 14:56
Physical Exam
Constitutional: No acute distress
Cardiovascular: Rhythm & rate is regular
Respiratory: Lungs clear to auscul. and Other (intubated and ventilated)
Neuro/Psych: Other (sedated post-op)
Other: Skin (midsternal incision is CDI)
Data Reviewed
-
Date of Service: May 18, 2024
EKG: Tracing Personally Visualized and interpreted (as described in body of note)
X-Ray/CT/US/MRI/NUC/PET: Report Reviewed by me (CXR: ndotracheal tube tip is approximate 6 4.5 cm above the nydia, having been advanced approximately 2 cm. Otherwise stable appearance. No other significant interval change.)
Medical Tests (PFT, Pathology etc): Report Reviewed by me (DAVID: LVEF is 30-35%. )
Labs: Labs Reviewed by me
[2024-05-18 16:21] LABS: B.E. -6.2 mmol/L; HCO3 19.6 mmol/L (21-28); O2 Saturation % 97.3 % (94-98); PCO2 39 mmHg (35-48); PO2 114 mmHg (83-108); pH 7.31 (7.35-7.45)
[2024-05-18 16:24] LABS: Blood Urea Nitrogen 30 mg/dl (9-20); Estimated Creatinine Clearance 60 ml/min; Glucose 206 mg/dl (70-99); Magnesium 2.9 mg/dl (1.6-2.3)
[2024-05-18] MEDS: SODIUM BICARBONATE 50 MEQ IV ×2 (16:37→21:44)
[2024-05-18 17:00] LABS: Glucose - Point of Care 180 mg/dl (70-99)
[2024-05-18 17:58] LABS: Glucose - Point of Care 157 mg/dl (70-99)
[2024-05-18 18:58] LABS: Glucose - Point of Care 150 mg/dl (70-99)
[2024-05-18 19:01] LABS: B.E. -2.6 mmol/L; HCO3 23.7 mmol/L (21-28); Ionized Calcium 1.19 mMOL/L (1.15-1.33); O2 Saturation % 96.3 % (94-98); PCO2 46 mmHg (35-48); PO2 95 mmHg (83-108); Potassium 4.7 mMOL/L (3.5-5.1); pH 7.32 (7.35-7.45)
[2024-05-18 19:04] LABS: Hematocrit 37.6 % (39.0-52.0); Hemoglobin 12.6 g/dL (13.0-18.0)
[2024-05-18 19:07] LABS: Platelet Count 152 10^3/uL (130-400)
--- NOTE | 2024-05-18 19:15 | PTCARENOTE ---
pt extubated to 6L NC w/ no incident @ 1914 able to state name and and able to follow all commands
[2024-05-18 20:03] LABS: Glucose - Point of Care 148 mg/dl (70-99)
[2024-05-18] MEDS: OFIRMEV 100 IV (20:08)
[2024-05-18] MEDS: LOW STRENGTH ASPIRIN 81 MG PO (20:33)
[2024-05-18] MEDS: LR 250 ML IV (21:00)
--- NOTE | 2024-05-18 21:08 | PTCARENOTE ---
received pt from previous rn. SR with 1st degree AVB with rates in the 50s. BP supported with levophed.Epicardial v-wire to back up 45/5/1.5 with occasional paced beats.Lungs clear anteriorly. Moderate amount of clear sputum from oral cavity.
Mediastinal chest tubes x2 to -20cm suction draining red fluid. Right and left pleural chest tubes to -20cm suction draining red fluid. No air leak, tidaling, crepitus noted. Bilateral radial and DP pulses palpable. No edema noted. Abdomen soft,
round, obese, nontender. Hypoactive BS. Monaco catheter intact draining jey urine. Sternal incision covered with Antibacterial dressing, . Chest tube dressing CDI. Right groin puncture site approximated, WILEY. Right knee incision approximated with
skin glue, covered with ILA-CDI. Right IJ cordis intact with swan floated to 46cm. PIV intact.
Gtts:
Dobutamine
Levophed
Insulin per Critical Care Glycemic Protocol
[2024-05-18 21:13] LABS: Glucose - Point of Care 173 mg/dl (70-99)
[2024-05-18 21:14] LABS: Mixed Venous O2 Saturation 62.1 %
[2024-05-18 21:17] LABS: B.E. -3.8 mmol/L; HCO3 22.2 mmol/L (21-28); O2 Saturation % 97.5 % (94-98); PCO2 43 mmHg (35-48); PO2 111 mmHg (83-108); Potassium 4.9 mMOL/L (3.5-5.1); pH 7.32 (7.35-7.45)
[2024-05-18 21:18] LABS: Hematocrit 37.3 % (39.0-52.0); Hemoglobin 12.6 g/dL (13.0-18.0)
[2024-05-18] MEDS: ROXICODONE 5 MG PO (21:41)
[2024-05-18] MEDS: NEURONTIN 100 MG PO (21:43)
[2024-05-18] MEDS: SENOKOT-S PO (21:44)
[2024-05-18] MEDS: ANCEF 5 IV (21:45)
[2024-05-18] MEDS: DILAUDID 0.25 MG IV (22:58)
[2024-05-18 23:09] LABS: Glucose - Point of Care 134 mg/dl (70-99)
[2024-05-19] VITALS (32 sets, daily range): BP systolic 70–136; BP diastolic 29–91; PULSE 2–74; BMI 43.3
[2024-05-19 00:01] LABS: B.E. -1.1 mmol/L; HCO3 24.8 mmol/L (21-28); Ionized Calcium 1.19 mMOL/L (1.15-1.33); O2 Saturation % 96.4 % (94-98); PCO2 45 mmHg (35-48); PO2 94 mmHg (83-108); Potassium 4.7 mMOL/L (3.5-5.1); pH 7.35 (7.35-7.45)
[2024-05-19 00:20] LABS: Lactic Acid 1.7 mmol/L (0.7-2.0)
[2024-05-19 01:00] LABS: Glucose - Point of Care 162 mg/dl (70-99)
[2024-05-19] MEDS: CALCIUM GLUCONATE 100 IV (01:22)
[2024-05-19] MEDS: ROXICODONE 5 MG PO ×4 (01:52→17:57)
[2024-05-19 02:10] LABS: Glucose - Point of Care 138 mg/dl (70-99)
[2024-05-19 03:12] LABS: Glucose - Point of Care 115 mg/dl (70-99)
[2024-05-19] MEDS: DILAUDID 0.25 MG IV (03:16)
[2024-05-19 04:22] LABS: Glucose - Point of Care 114 mg/dl (70-99)
[2024-05-19 04:40] LABS: Mixed Venous O2 Saturation 59.4 %
[2024-05-19] MEDS: NOVOLIN R INSULIN INFUSION 100 IV (04:47)
[2024-05-19 04:48] LABS: Hematocrit 34.9 % (39.0-52.0); Hemoglobin 11.6 g/dL (13.0-18.0); Mean Corp Hgb Conc. 33.2 g/dL (33.0-37.0); Mean Corpuscular Hgb 30.9 pg (27.0-31.0); Mean Corpuscular Volume 92.8 fL (80.0-94.0); Mean Platelet Volume 10.7 fL (7.4-10.4); Platelet Count 141 10^3/uL (130-400); Red Blood Cell Count 3.76 10^6/uL (4.70-6.10); Red Cell Dist. Width 14.2 % (11.5-14.5); White Blood Cell Count 18.5 10^3/uL (4.8-10.8)
[2024-05-19 04:49] LABS: B.E. -2.7 mmol/L; HCO3 23.7 mmol/L (21-28); Ionized Calcium 1.28 mMOL/L (1.15-1.33); O2 Saturation % 95.3 % (94-98); PCO2 47 mmHg (35-48); PO2 85 mmHg (83-108); pH 7.31 (7.35-7.45)
[2024-05-19] MEDS: DOBUTREX 500 MG 250 IV (04:49)
[2024-05-19] MEDS: ANCEF 5 IV ×2 (04:50→13:40)
[2024-05-19 05:02] LABS: Glucose - Point of Care 105 mg/dl (70-99)
[2024-05-19 05:08] LABS: Blood Urea Nitrogen 37 mg/dl (9-20); Calcium 8.5 mg/dl (8.4-10.2); Carbon Dioxide 26 mmol/L (22-30); Chloride 106 mmol/L (98-107); Estimated Creatinine Clearance 42 ml/min; Glucose 115 mg/dl (70-99); Magnesium 2.7 mg/dl (1.6-2.3); Potassium 4.6 mmol/L (3.5-5.1); Sodium 138 mmol/L (135-145); eGFR 35.02
[2024-05-19] MEDS: TYLENOL 1000 MG PO ×3 (05:21→21:20)
[2024-05-19 07:09] LABS: Glucose - Point of Care 100 mg/dl (70-99)
--- NOTE | 2024-05-19 07:45 | W.PN.INTV ---
Today's Communication / Plan
Recommendations
Tolerated extubation
Wean FiO2
BiPAP if needed
Incentive spirometry
Monitor chest tube output
Wean inotropes and pressors
Increase activity
Outpatient sleep apnea workup
Continues on insulin drip and ICU status
Assessment
-
73-year-old obese male with a history of hypertension, hyperlipidemia, chronic kidney disease, cardiomyopathy, GI bleed, alcoholic in recovery, and diabetes found to have significant multivessel CAD and underwent CABG-pulmonary was consulted for
postoperative ventilator/critical care management 05/18/2024.
Multivessel coronary artery disease with preoperative reduced EF 35%
Status post CABG x 3-[place]-LAD, GSV-D2, GSV-OM-Dr. Eubanks-05/18/2024
Conditions present prior to admission:
Hypertension.
Hyperlipidemia.
Renal calculi.
Diabetes.
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
Prostate cancer.
TIA.
Chronic kidney disease stage III.
GI bleed-2019
Diverticulosis.
Colon polyps
Remote diverticulitis
Recurrent nephrolithiasis
Remote bowel obstruction
Morbid obesity.
Bilateral knee replacement 2018. UroLift 2019. Facial surgery 2021. Left rotator cuff repair. Prostate biopsy. Mohs surgery x 3. Multiple lithotripsies.
Plan
Tolerated extubation
Wean FiO2
Encourage incentive spirometry
Increase activity
Aspiration precautions
BiPAP if needed
Pulmonary artery catheter and arterial line will be removed
Pressors have been weaned
Continue to monitor chest tube output
Follow hemoglobin
Continue to follow platelet count and coags
Transfuse blood product as needed
CT surgery following chest tubes as well
Follow blood sugar
Insulin supplementation continues as needed
Early nutrition
Early mobilization
DVT prophylaxis
Patient states had sleep study 10 years ago and 'did not have sleep apnea'-reviewed associations and risks of untreated sleep apnea, willing to retest
Patient is at significant risk for obstructive sleep apnea-recommend outpatient evaluation-will leave information on chart
Critical care statement: A total of 35 minutes of critical care time was provided for this patient today. This includes management of ventilator, spontaneous breathing trial, arterial blood gases, pressors, of unstable vital signs, evaluation of the
patient at bedside, insulin drip management, BiPAP management, reviewing the patient's pertinent medical records including radiographs, microbiology, laboratory evaluations, and discussion with primary team and critical care nursing.
Diagnostic data:
CT chest 05/03/2024-severe coronary artery calcifications, no lung consolidations, effusions, pneumothorax, masses or nodules
Spirometry 04/22/2024-FEV1 1.84-64%, FVC 2.39-64%, mild to moderate restriction.
Nuclear stress test 03/12/2021-EF 50%, moderate risk study ischemia suspected
Echocardiogram 04/05/2024-EF 35%, mild mitral regurgitation,
Cardiac catheterization 04/22/2024-severe multivessel CAD, RA 19, PA 41/27, PCWP-22, cardiac index 2.2
Subjective Dataa
Subjective Data
Date of Service:
Date of Service: May 19, 2024
Chief Complaint: [employer] Follow Up, Pulmonary Follow Up and Vent Management Follow Up
Subjective:
Tolerated extubation, some mild shortness of breath, no chest pain or abdominal pain, denies significant snoring, states that he refreshed in the morning, significant nocturia, and does not complain of significant daytime somnolence
Review of Systems
General: Other (Per HPI)
Objective Data
Data Reviewed
Vital Signs / I&O / Oxygen:
Vital Signs
Temp Pulse Resp BP Pulse Ox
97.6 F 73 15 112/69 94
05/19/24 07:33 05/19/24 07:33 05/19/24 07:33 05/19/24 07:00 05/19/24 07:33
Intake and Output
05/18/24 05/19/24 05/20/24
06:59 06:59 06:59
Intake Total 2167.2 / 2229.7 155.0 / 155.0
Output Total 1025 / 1065 40 / 40
Balance 1142.2 / 1164.7 115.0 / 115.0
SaO2 [CPAP/PSV] 98
SaO2 [SIMV] 98
SaO2 94
Nasal Cannula flow liters per 2
minute
Labs/Micro/Reports
Lab Data
05/19/24 04:25
05/19/24 04:25
Laboratory Results
05/18/24 05/18/24 05/18/24
14:56 16:06 18:54
PT 16.3 H
INR 1.25
APTT 31.4
pH 7.29 L 7.31 L 7.32 L
pCO2 46 39 46
pO2 94 114 H 95
HCO3 22.1 19.6 L 23.7
O2 Delivery Level Not Reportable
05/18/24 05/18/24 05/19/24
21:01 23:52 04:26
PT
INR
APTT
pH 7.32 L 7.35 7.31 L
pCO2 43 45 47
pO2 111 H 94 85
HCO3 22.2 24.8 23.7
O2 Delivery Level
--- NOTE | 2024-05-19 08:00 | SUR.OPER ---
Assumed care of patient from grinder set up operator RN. Dozing intermittently. SR on monitor, RT IJ cordis with swan At 43 cm, Lt radial A line transducing. Lines leveled, recalibrated and flushed. Epicardial wire to VVI 45, no pacing noted at present.
Current infusions as follows: Levophed, Dobutamine, Insulin. See flowsheets for totals/titrations. 2 L NC 93%, Chest tubes x 4 to - 20 cm suction. No air leak or crepitus noted. Abdomen obese, with hypoactive bowel sounds, denies nausea.
Surgical sites c,d,i. Plus 1 general anasarca. Pulses palpable. Plan for day discussed.
[2024-05-19 08:06] LABS: B.E. -0.3 mmol/L; HCO3 25.9 mmol/L (21-28); O2 Saturation % 95.1 % (94-98); PCO2 48 mmHg (35-48); PO2 77 mmHg (83-108); pH 7.34 (7.35-7.45)
[2024-05-19] MEDS: MUCINEX PO (08:30)
--- NOTE | 2024-05-19 08:31 | W.PN.CT ---
Today's Communication / Plan
-
-pod #1
-no significant issues overnight
-nsr with frequent PACs
-CI 2.46, CO 5.59, mvO2 59.4. Drips: Dobut 3, Levo 2, Insulin
-CT outputs: 2 meds 150/210, 2 pleur 145/215 in 12/24 hrs
-wean off Dobut and Levo as tolerated
-maintain Monaco
-continue insulin
-Cr 2.0 today (1.4 on 05/18 and baseline 1.8-2)
-current meds (ASA, Plavix, Lipitor, Protonix). Holding BB, Amio d/t bradycardia. Holding Mg d/t Ckd
-encourage IS, OOB as tolerated
Assessment / Plan
-
- mv-CAD - s/p CABG x 3 ([place]O to LAD, GSV to D2, GSV to OM, Endarterectomy to SVG-D2); ELAA w/ 45mm AtriClip by Dr. Eubanks on 05/18/24, pod #1
- Post-DAVID: LVEF 35%, unchanged MR
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
- HTN/HLD
- CKD III (baseline Cr 1.6-2)
- Hx RBBB w/ PACs & PVCs, SNVT
- Class 3 obesity (BMI 41)
- Mild MR
- DM II (HgA1c 6.8)
- s/p prostate bx with urolift 2018
- hx TIA 2014
- Former alcoholic
- ED
- GI bleed 2019
- OA, s/p b/l TKA 2017
- L RTC repair
- Nephrolithiasis with multiple lithotripsies
- Acute postop blood loss anemia
- Acute postop coagulopathy - s/p 1 unit platelet
- Acute postop atelectasis
- Acute postop hypovolemia with subsequent hypervolemia
Discussed patient care with: Nursing and Care Team
Subjective
Procedure
- s/p CABG x 3 (AUG[place]O to LAD, GSV to D2, GSV to OM); ELAA w/ 45mm AtriClip by Dr. Eubanks on 05/18/24
-
Date of Service: May 19, 2024
Objective Data
-
PT 16.3 Sec (11.4-14.6) H 05/18/24 14:56
INR 1.25 05/18/24 14:56
APTT 31.4 Sec (23.4-35.0) 05/18/24 14:56
Vital Signs
Vital Signs
Temp Pulse Resp BP Pulse Ox
98.1 F 64 14 109/65 93
05/19/24 02:00 05/19/24 02:30 05/19/24 02:30 05/19/24 02:00 05/19/24 02:30
CT Intake/Output/Weight
05/18/24 05/18/24 05/19/24
06:59 18:59 06:59
Intake Total 379.7 / 1926.5 1546.8 / 1926.5
Output Total 360 / 835 475 / 835
Balance 19.7 / 1091.5 1071.8 / 1091.5
SaO2: 93
Physical Exam
-
General: Awake and AOx3
Cardiovascular: Regular rate & rhythm, No Murmurs and Rub
Respiratory: Decreased Breath Sounds
Sternum: Stable
Incision: Clean, Dry and Intact
Extremities: Edema +1 (DPs by Doppler b/l)
Abdomen: soft, nontender, + decreased bowel sounds, nondistended
Data Reviewed
-
Lab Results: Results Reviewed
Medications: Active Meds Reviewed
Chest X-Ray: Report Reviewed and Image Reviewed
ECG: Report Reviewed and Image Reviewed
[2024-05-19] MEDS: LIDOCAINE 4% PATCH 1 PATCH TOPICAL (08:48)
[2024-05-19] MEDS: PLAVIX 75 MG PO (08:48)
[2024-05-19] MEDS: LOW STRENGTH ASPIRIN 81 MG PO (08:48)
[2024-05-19] MEDS: LASIX 40 MG IV (08:48)
[2024-05-19] MEDS: SENOKOT-S 1 TABLET PO ×2 (08:48→20:17)
[2024-05-19] MEDS: NEURONTIN 100 MG PO ×3 (08:49→21:20)
[2024-05-19] MEDS: PROTONIX 40 MG PO (08:49)
[2024-05-19] MEDS: BACTROBAN 2% OINTMENT 1 APPLIC NASAL ×2 (08:49→20:17)
[2024-05-19 09:02] LABS: Glucose - Point of Care 129 mg/dl (70-99)
--- NOTE | 2024-05-19 09:20 | PTCARENOTE ---
Assumed care of patient from mid level clinician RN. Zhang intermittently. ST
[2024-05-19 11:11] LABS: Glucose - Point of Care 124 mg/dl (70-99)
--- NOTE | 2024-05-19 11:14 | W.PN.CD ---
Today's Communication / Plan
-
weaning from drips
GMDT when able
Impression / Plan
-
73 y/o male (follows with Dr. Woods) with hypertension, obesity, CKD, NSVT, PVC's, atrial ectopy, RBBB. OP monitor revealed AIVR as predominant rhythm. Echo done and revealed EF 35%. Cath done and showed severe multivessel coronary artery disease
and he is now s/p CABG.
Severe multivessel CAD:
-now s/p CABG x 3 ([place] to LAD, GSV to D2, GSV to OM), GSV to D2 required coronary endarterectomy secondary to plaque disruption after arteriotomy, ELAA w/ 45mm AtriClip- Dr. Eubanks 05/18/23
-post-op EKG SB with 1st degree AVB, PVC, IVCD. Tele: SR, PAC/s, PVC's
-intra-op DAVID EF 30-35%
-weaning from drips
-ASA 81mg daily, statin
ICM:
-EF 30-35%
-GDMT to be added back and BP and renal function allow; would start with Toprol XL
-monitor volume
hx AIVR, RBBB:
-monitor telemetry
CKD3b:
-CARLOTTA post op
Morbid obesity:
-will benefit from weight loss in intermediate
DM:
-per pimary team
Physical Exam
Vital Signs/Labs
Vital Signs
Temp Pulse Resp BP Pulse Ox
97.9 F 73 16 108/51 94
05/19/24 10:52 05/19/24 10:55 05/19/24 10:55 05/19/24 10:52 05/19/24 10:55
05/18/24 05/19/24 05/20/24
06:59 06:59 06:59
Actual Weight 119.1 kg 125.2 kg
05/19/24 04:25
05/19/24 04:25
PT 16.3 Sec (11.4-14.6) H 05/18/24 14:56
INR 1.25 05/18/24 14:56
APTT 31.4 Sec (23.4-35.0) 05/18/24 14:56
Magnesium 2.7 mg/dl (1.6-2.3) H 05/19/24 04:25
Physical Exam
Constitutional: No acute distress
EENT: Moist mucous membranes
Cardiovascular: Rhythm & rate is regular, JVD pressure is normal, Systolic murmur absent and Pedal edema present
Respiratory: Respiratory effort normal and Lungs clear to auscul.
Neuro/Psych: AO x 3
Data Reviewed
-
Date of Service: May 19, 2024
EKG: Other (Tele: NSR, PAC's, PVC's)
Labs: Labs Reviewed by me
[2024-05-19 13:13] LABS: Glucose - Point of Care 117 mg/dl (70-99)
[2024-05-19] MEDS: FLEXERIL 5 MG PO ×2 (13:38→22:05)
[2024-05-19] MEDS: NSS IV (13:41)
--- NOTE | 2024-05-19 14:21 | PTCARENOTE ---
Assist x 2 oob to chair. VSS tolerated . Minimal drainage from chest tubes with standing. Medicated with flexeril and tylenol. at bedside
--- NOTE | 2024-05-19 14:38 | W.PN.ANS.POP ---
Anesthesia Post Operative
- Anesthesia Post Op Note
Vital Signs Stable-See Nursing Note: Yes
Airway Patent: Yes
Adequate Pain Control: Yes
Change in Mental Status: No
Current Postoperative Nausea & Vomiting: No
Anesthesia Complications: No
General Anesthetic Recall: No
Unplanned Admission: No
Post Op Hydration Adequate: Yes
- -
Pt OOB to chair..resting comfortably..VSS.
[2024-05-19 15:24] LABS: Glucose - Point of Care 119 mg/dl (70-99)
--- NOTE | 2024-05-19 15:34 | PTCARENOTE ---
Assist x 2 back to bed from chair. Heart monitor alarming Pt tachy 140's , GALVAN . Settled back to SR 1degree AVB w/ BBB in 80's. BP stable. Levo remains at 2. CT LIFE ENRICHMENT ASSISTANT aware, orders obtained. Will monitor.
[2024-05-19] MEDS: CORDARONE 518 MG IV ×2 (15:44→15:58)
[2024-05-19] MEDS: CORDARONE 103 MG IV (15:44)
[2024-05-19] MEDS: LIPITOR 40 MG PO (17:58)
[2024-05-19 18:11] LABS: Glucose - Point of Care 106 mg/dl (70-99)
[2024-05-19 19:21] LABS: Hepatitis C Antibody Negative (Negative)
[2024-05-19] MEDS: DILAUDID 0.5 MG IV ×2 (20:09→23:43)
[2024-05-19 20:13] LABS: Glucose - Point of Care 122 mg/dl (70-99)
[2024-05-19] MEDS: MUCINEX 600 MG PO (20:17)
--- NOTE | 2024-05-19 21:00 | PTCARENOTE ---
Assumed care of pt from augustina RN. Pt AAOx3. Pt in 1st degree heart block w/ BBB. HR 70s. Temporary epicardial V-wires intact and set to 45/5/1.5. BP 103/74. A-line BP's not accurate. Wave-form off. Tried leveling and flushing and had multiple
nurses at bedside to help look at it and help reposition pt arm. Able to get blood return. PAPs 30-40s/20s. CVP ~14. +1 generalized edema. Palpable pulses throughout. Pt on 2 L NC. POX 93%. Lung sounds diminished. Mediastinal CTx2 and R/L pleural CT
to -20 suction, no airleak noted at this time, and output WNL. Pt encouraged to take deep breaths. Abdomen round and firm. +BS. Monaco catheter C/D/I and draining jey urine. OU decreased. CTPA aware. All surgical sites stable. Right IJ cordis w/
SWAN @46 C/D/I. All lines leveled, zeroed, and flushed. Pt c/o pain - see MAR. Pt repositioned in bed. See worklist for full nursing assessment and interventions. Call palafox within reach.
[2024-05-19 22:01] LABS: Glucose - Point of Care 94 mg/dl (70-99)
[2024-05-19 22:30] LABS: B.E. -3.9 mmol/L; HCO3 23.7 mmol/L (21-28); Ionized Calcium 1.17 mMOL/L (1.15-1.33); O2 Saturation % 95.3 % (94-98); PCO2 54 mmHg (35-48); PO2 78 mmHg (83-108); Potassium 5.1 mMOL/L (3.5-5.1); pH 7.25 (7.35-7.45)
--- NOTE | 2024-05-19 23:11 | PTCARENOTE ---
ABG acidotic. pH 7.25. PCO2 54. CTPA and respiratory notified. Pt to be placed on Bipap overnight.
[2024-05-19] MEDS: ZOFRAN 4 MG IV (23:41)
[2024-05-19 23:50] LABS: Glucose - Point of Care 141 mg/dl (70-99)
[2024-05-20] VITALS (66 sets, daily range): BP systolic 64–137; BP diastolic 41–116; PULSE 2–111; BMI 43.5
--- NOTE | 2024-05-20 00:16 | PTCARENOTE ---
assumed care of pt from previous RN around 2300. Pt AAOx3. Pt in 1st degree heart block w/ BBB. HR 70s. Temporary epicardial V-wires intact and set to 45/5/1.5. A-line BP's not accurate. Wave-form off. PAPs 30-40s/20s. CVP ~14. +1 generalized edema.
+ pulses. pox 93% on BiPap 15/5 6L, lung sounds diminished.Mediastinal CTx2 and R/L pleural CT to -20 suction, no air leak/ tidaling/crepitus noted. Abdomen round and firm. +BS. Monaco catheter C/D/I and draining very minimal jey urine. CTPA made
aware. All surgical sites stable. Right IJ cordis w/ SWAN @46 C/D/I. All lines leveled, zeroed, and flushed. PIV infusing insulin per protocol. plan of care discussed questions encouraged.
gtts
dobutamine
amiodarone
insulin
[2024-05-20] MEDS: CALCIUM GLUCONATE 100 IV (00:54)
--- NOTE | 2024-05-20 01:35 | PTCARENOTE ---
pt went into a-fib @0130, amio bolus given, CTPA kajal fuller made aware
[2024-05-20] MEDS: CORDARONE 103 MG IV ×3 (01:48→13:25)
[2024-05-20 01:58] LABS: Glucose - Point of Care 134 mg/dl (70-99)
[2024-05-20 03:59] LABS: Glucose - Point of Care 144 mg/dl (70-99)
[2024-05-20 04:07] LABS: B.E. -2.5 mmol/L; HCO3 24.1 mmol/L (21-28); Ionized Calcium 1.24 mMOL/L (1.15-1.33); O2 Saturation % 95.9 % (94-98); PCO2 49 mmHg (35-48); PO2 77 mmHg (83-108); Potassium 4.7 mMOL/L (3.5-5.1)
[2024-05-20 04:09] LABS: Mixed Venous O2 Saturation 68.3 %
[2024-05-20] MEDS: DOBUTREX 500 MG 250 IV (04:16)
[2024-05-20] MEDS: DILAUDID 0.25 MG IV (04:21)
[2024-05-20 04:26] LABS: Hematocrit 30.4 % (39.0-52.0); Hemoglobin 9.8 g/dL (13.0-18.0); Mean Corp Hgb Conc. 32.2 g/dL (33.0-37.0); Mean Corpuscular Hgb 30.7 pg (27.0-31.0); Mean Corpuscular Volume 95.3 fL (80.0-94.0); Red Blood Cell Count 3.19 10^6/uL (4.70-6.10); Red Cell Dist. Width 14.6 % (11.5-14.5); White Blood Cell Count 16.9 10^3/uL (4.8-10.8)
[2024-05-20 04:38] LABS: Blood Urea Nitrogen 52 mg/dl (9-20); Calcium 8.3 mg/dl (8.4-10.2); Carbon Dioxide 23 mmol/L (22-30); Chloride 101 mmol/L (98-107); Estimated Creatinine Clearance 30 ml/min; Glucose 138 mg/dl (70-99); Magnesium 2.7 mg/dl (1.6-2.3); Potassium 4.7 mmol/L (3.5-5.1); Sodium 134 mmol/L (135-145); eGFR 22.42
[2024-05-20 05:41] LABS: Platelet Count 89 10^3/uL (130-400)
--- NOTE | 2024-05-20 06:09 | W.PN.CT ---
Today's Communication / Plan
-
-pod #2
-started bipap overnight d/t respiratory acidosis. Pt didn't tolerate full mask, but tolerated nasal mask
-went into a-fib 110s-120s at 1:30 am - already on Amio drip, gave Amio bolus x2
-CI 3.57, CO 8.11, SVR 592, mVO2 68.3. Drips: Dobut 2, Levo 2, Amio 0.5, Insulin
-CT outputs: 2 meds 80/260, 2 pleur 65/95 in 12/24 hrs
-continue weaning off Dobut as tolerated
-restarted Levo overnight as he needs higher BPs for renal perfusion. UO improved after re-starting low-dose Levo
-Cr trended up - 2.9 today (2.0 on 05/19 and baseline 1.8-2)
-consider diuresis (wt is up 15 lbs from preop)
-encourage IS, OOB
Assessment / Plan
-
- mv-CAD - s/p CABG x 3 ([place] to LAD, GSV to D2, GSV to OM, Endarterectomy to SVG-D2); ELAA w/ 45mm AtriClip by Dr. Eubanks on 05/18/24, pod #2
- Post-DAVID: LVEF 35%, unchanged MR
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
- HTN/HLD
- CKD III (baseline Cr 1.6-2)
- Hx RBBB w/ PACs & PVCs, SNVT
- Class 3 obesity (BMI 41)
- Mild MR
- DM II (HgA1c 6.8)
- s/p prostate bx with urolift 2018
- hx TIA 2014
- Former alcoholic
- ED
- GI bleed 2019
- OA, s/p b/l TKA 2017
- L RTC repair
- Nephrolithiasis with multiple lithotripsies
- Acute postop blood loss anemia
- Acute postop coagulopathy - s/p 1 unit platelet
- Acute postop thrombocytopenia
- Acute postop atelectasis
- Acute postop hypovolemia with subsequent hypervolemia
- CARLOTTA in setting of CKD
- Acute postop respiratory acidosis - started on bipap at night.
- Acute postop a-fib- tx with Amio boluses and drip
Discussed patient care with: Nursing and Care Team
Subjective
Procedure
- s/p CABG x 3 ([place]O to LAD, GSV to D2, GSV to OM); ELAA w/ 45mm AtriClip by Dr. Eubanks on 05/18/24
-
Date of Service: May 20, 2024
Objective Data
-
Lab Results
05/20/24 03:58
05/20/24 03:58
PT 16.3 Sec (11.4-14.6) H 05/18/24 14:56
INR 1.25 05/18/24 14:56
APTT 31.4 Sec (23.4-35.0) 05/18/24 14:56
Vital Signs
Vital Signs
Temp Pulse Resp BP Pulse Ox
98.4 F 112 10 108/58 93
05/20/24 04:02 05/20/24 05:00 05/20/24 05:00 05/20/24 05:00 05/20/24 05:00
CT Intake/Output/Weight
05/19/24 05/19/24 05/20/24
06:59 18:59 06:59
Intake Total 1787.5 / 2229.7 677.9 / 1408.2 730.3 / 1408.2
Output Total 665 / 1065 615 / 1080 465 / 1080
Balance 1122.5 / 1164.7 62.9 / 328.2 265.3 / 328.2
SaO2: 93
Physical Exam
-
General: Awake and AOx3
Cardiovascular: Irregular rate & rhythm, No Murmurs and Rub
Respiratory: Decreased Breath Sounds
Sternum: Stable
Incision: Clean, Dry and Intact
Extremities: Edema +1
Abdomen: soft, ? distended, + decreased bowel sounds, nontender, no nausea
Data Reviewed
-
Lab Results: Results Reviewed
Medications: Active Meds Reviewed
Chest X-Ray: Report Reviewed and Image Reviewed
ECG: Report Reviewed and Image Reviewed
[2024-05-20 06:16] LABS: Glucose - Point of Care 118 mg/dl (70-99)
[2024-05-20] MEDS: TYLENOL PO ×2 (06:20→14:29)
--- NOTE | 2024-05-20 07:41 | W.PN.INTV ---
Today's Communication / Plan
Recommendations
Wean pressors
Diuresis as tolerated
BiPAP-attempt to liberate
Follow ABG
Atrial fibrillation rate control
Assessment
-
73-year-old obese male with a history of hypertension, hyperlipidemia, chronic kidney disease, cardiomyopathy, GI bleed, alcoholic in recovery, and diabetes found to have significant multivessel CAD and underwent CABG-pulmonary was consulted for
postoperative ventilator/critical care management 05/18/2024.
Multivessel coronary artery disease with preoperative reduced EF 35%
Status post CABG x 3-[place]-LAD, GSV-D2, GSV-OM-Dr. Eubanks-05/18/2024
Postop hypercapnia and respiratory acidosis requiring BiPAP
Paroxysmal atrial fibrillation-
Conditions present prior to admission:
Hypertension.
Hyperlipidemia.
Renal calculi.
Diabetes.
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
Prostate cancer.
TIA.
Chronic kidney disease stage III.
GI bleed-2019
Diverticulosis.
Colon polyps
Remote diverticulitis
Recurrent nephrolithiasis
Remote bowel obstruction
Morbid obesity.
Bilateral knee replacement 2018. UroLift 2019. Facial surgery 2021. Left rotator cuff repair. Prostate biopsy. Mohs surgery x 3. Multiple lithotripsies.
Plan
Tolerated extubation
Wean FiO2
Encourage incentive spirometry
Increase activity
Aspiration precautions
BiPAP 14/5 cm continues as needed-attempt to liberate
Follow ABG
Pulmonary artery catheter and arterial line will be removed
Pressors wean as tolerated-currently on levo
Wean dobutamine
Amiodarone boluses provided-continue amiodarone
Monitor rhythm-paroxysmal atrial fibrillation
Cardiology following
Diuresis as tolerated
Monitor renal function, electrolytes, intake/output, lower extremity edema and weight
Replace electrolytes as needed
Consider nephrology evaluation if renal function continues to worsen
Continue to monitor chest tube output
Follow hemoglobin
Continue to follow platelet count and coags
Transfuse blood product as needed
CT surgery following chest tubes as well
Follow blood sugar
Insulin supplementation continues as needed
Early nutrition
Early mobilization
DVT prophylaxis
Patient states had sleep study 10 years ago and 'did not have sleep apnea'-reviewed associations and risks of untreated sleep apnea, willing to retest
Patient is at significant risk for obstructive sleep apnea-recommend outpatient evaluation-will leave information on chart
Critical care statement: A total of 40 minutes of critical care time was provided for this patient today. This includes management of ventilator, spontaneous breathing trial, arterial blood gases, pressors, of unstable vital signs, evaluation of the
patient at bedside, insulin drip management, BiPAP management, reviewing the patient's pertinent medical records including radiographs, microbiology, laboratory evaluations, and discussion with primary team and critical care nursing.
Diagnostic data:
CT chest 05/03/2024-severe coronary artery calcifications, no lung consolidations, effusions, pneumothorax, masses or nodules
Spirometry 04/22/2024-FEV1 1.84-64%, FVC 2.39-64%, mild to moderate restriction.
Nuclear stress test 03/12/2021-EF 50%, moderate risk study ischemia suspected
Echocardiogram 04/05/2024-EF 35%, mild mitral regurgitation,
Cardiac catheterization 04/22/2024-severe multivessel CAD, RA 19, PA 41/27, PCWP-22, cardiac index 2.2
Subjective Dataa
Subjective Data
Date of Service:
Date of Service: May 20, 2024
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
Subjective:
Requiring BiPAP because of respiratory acidosis, alert, no complaints of shortness of breath at rest, pain controlled, no abdominal pain
Review of Systems
General: Other (Per HPI)
Objective Data
Data Reviewed
Vital Signs / I&O / Oxygen:
Vital Signs
Temp Pulse Resp BP Pulse Ox
98.4 F 111 9 114/77 94
05/20/24 04:02 05/20/24 06:15 05/20/24 06:15 05/20/24 06:00 05/20/24 06:15
Intake and Output
05/19/24 05/20/24 05/21/24
06:59 06:59 06:59
Intake Total 2167.2 / 2229.7 1555.5 / 1555.5
Output Total 1025 / 1065 1125 / 1125
Balance 1142.2 / 1164.7 430.5 / 430.5
SaO2 [CPAP/PSV] 98
SaO2 [SIMV] 98
SaO2 94
Nasal Cannula flow liters per 6
minute
Physical Exam
General: Respiratory Distress (n) and Comfortable
HEENT: Normocephalic, Anicteric, Moist Mucous Membranes and Other (Thick neck)
Cardiovascular: Irregular Rhythm
Respiratory: Crackles (Few basilar), Rhonchi (n), Non-Labored Respirations, Accessory Resp Muscle Use (n) and Stridor (n)
GI: Soft, Non Distended and Non Tender
Neurology: Awake, Alert and No Motor Deficits
Skin: Warm, Good Color, Cyanosis (n), Jaundice (n) and Rash (n)
Labs/Micro/Reports
Lab Data
05/20/24 03:58
05/20/24 03:58
Laboratory Results
05/19/24 05/19/24 05/20/24
07:55 22:23 03:58
pH 7.34 L 7.25 L 7.30 L
pCO2 48 54 H 49 H
pO2 77 L 78 L 77 L
HCO3 25.9 23.7 24.1
O2 Delivery Level
--- NOTE | 2024-05-20 08:00 | PTCARENOTE ---
Assumed care of patient from shift supervisor melting RN, LAKIAO x 3, drowsy but answers appropriately. A fib on monitor 110's . Rt IJ swan at 46 cm. Lt radial A line transducing. Lines leveled, recalibrated and flushed. Epicardial wire set to back up of VVI
45. No pacing noted at present. Bipap in place , pulse ox 95%. IS to 750. Chest tubes x 4 to - 20 cm suction. No air leak or crepitus noted. Abdomen obese, positive bowel sounds, passing flatus. [place] draining clear jey urine. General
plus 1 anasarca appreciated. Pulses palpable. Plan for day discussed.
[2024-05-20] MEDS: NOVOLIN R INSULIN INFUSION 100 IV (08:36)
[2024-05-20] MEDS: LEVOPHED 250 IV (08:38)
[2024-05-20 08:43] LABS: Glucose - Point of Care 130 mg/dl (70-99)
[2024-05-20 09:02] LABS: B.E. -2.2 mmol/L; HCO3 23.7 mmol/L (21-28); O2 Saturation % 96.7 % (94-98); PCO2 45 mmHg (35-48); PO2 80 mmHg (83-108); Potassium 4.5 mMOL/L (3.5-5.1); Sodium 132 mMOL/L (136-145); pH 7.33 (7.35-7.45)
[2024-05-20] MEDS: LIDOCAINE 4% PATCH 1 PATCH TOPICAL (09:05)
[2024-05-20] MEDS: LASIX 40 MG IV (09:05)
[2024-05-20] MEDS: NEURONTIN 100 MG PO (09:07)
[2024-05-20] MEDS: LOW STRENGTH ASPIRIN 81 MG PO (09:07)
[2024-05-20] MEDS: ROXICODONE 5 MG PO ×2 (09:07→13:21)
[2024-05-20] MEDS: BACTROBAN 2% OINTMENT 1 APPLIC NASAL ×2 (09:08→22:17)
[2024-05-20] MEDS: PROTONIX 40 MG PO (09:08)
[2024-05-20] MEDS: PLAVIX 75 MG PO (09:26)
[2024-05-20] MEDS: SENOKOT-S 1 TABLET PO ×2 (09:26→22:17)
[2024-05-20] MEDS: MUCINEX PO (09:26)
[2024-05-20 10:09] LABS: Glucose - Point of Care 110 mg/dl (70-99)
--- NOTE | 2024-05-20 10:18 | W.PN.CD ---
Today's Communication / Plan
-
remains on amiodaone. Monitor rates ( note patietnt has sinus with RBBB on 05/18/23) RBB chronic. In Apr he also had accelerated idoventricular rhythm.
monitor renal function closely . creatinine 2.9
Impression / Plan
-
73 y/o male (follows with Dr. Woods) with hypertension, obesity, CKD, NSVT, PVC's, atrial ectopy, RBBB. OP monitor revealed AIVR as predominant rhythm. Echo done and revealed EF 35%. Cath done and showed severe multivessel coronary artery disease
and he is now s/p CABG.
Severe multivessel CAD:
-now s/p CABG x 3 (AUGUSTO to LAD, GSV to D2, GSV to OM), GSV to D2 required coronary endarterectomy secondary to plaque disruption after arteriotomy, ELAA w/ 45mm AtriClip- Dr. Eubanks 05/18/23
-post-op EKG SB with 1st degree AVB, PVC, IVCD. Tele: SR, PAC/s, PVC's
-intra-op DAVID EF 30-35%
-weaning from drips ( remainson low dose levo and low dose Dobutamine)
-ASA 81mg daily, statin
ICM:
-EF 30-35%
-GDMT to be added back and BP and renal function allow; would start with Toprol XL
-monitor volume
afib - currently on amio drip
- monitor
- anticoagulation when Ok from a post op standpoint.
hx AIVR, RBBB:
-monitor telemetry
CKD3b:
-CARLOTTA post op . now 2.9 . Monitor closely
optimise hemodynamics
DM:
-per pimary team
Physical Exam
Vital Signs/Labs
Vital Signs
Temp Pulse Resp BP Pulse Ox
98.7 F 118 18 129/67 96
05/20/24 07:43 05/20/24 08:45 05/20/24 08:45 05/20/24 08:40 05/20/24 08:45
05/19/24 05/20/24 05/21/24
06:59 06:59 06:59
Actual Weight 125.2 kg 125.9 kg
05/20/24 03:58
PT 16.3 Sec (11.4-14.6) H 05/18/24 14:56
INR 1.25 05/18/24 14:56
APTT 31.4 Sec (23.4-35.0) 05/18/24 14:56
Magnesium 2.7 mg/dl (1.6-2.3) H 05/20/24 03:58
Physical Exam
Constitutional: No acute distress
Cardiovascular: Rhythm/rate is irregular
Respiratory: Lungs clear to auscul., Wheeze Absent and Rhonchi Absent
GI: Soft and Non tender
Neuro/Psych: Alert
Data Reviewed
-
Date of Service: May 20, 2024
Medical Decision Making: Reviewed Test Results
X-Ray/CT/US/MRI/NUC/PET: Report Reviewed by me
Medical Tests (PFT, Pathology etc): Report Reviewed by me
Labs: Labs Reviewed by me
--- NOTE | 2024-05-20 11:02 | PTCARENOTE ---
Chest tubes x 4 removed per provider order. Pt tolerated w/o issue. Resting in bed after.
[2024-05-20 11:29] LABS: Glucose - Point of Care 109 mg/dl (70-99)
[2024-05-20 12:06] LABS: B.E. -1.7 mmol/L; HCO3 24.3 mmol/L (21-28); O2 Saturation % 94.6 % (94-98); PCO2 46 mmHg (35-48); PO2 73 mmHg (83-108); Potassium 4.4 mMOL/L (3.5-5.1); Sodium 134 mMOL/L (136-145); pH 7.33 (7.35-7.45)
[2024-05-20 12:19] LABS: Blood Urea Nitrogen 56 mg/dl (9-20); Calcium 7.9 mg/dl (8.4-10.2); Carbon Dioxide 25 mmol/L (22-30); Chloride 102 mmol/L (98-107); Estimated Creatinine Clearance 31 ml/min; Glucose 108 mg/dl (70-99); Potassium 4.5 mmol/L (3.5-5.1); Sodium 134 mmol/L (135-145); eGFR 23.39
[2024-05-20 12:55] LABS: Glucose - Point of Care 100 mg/dl (70-99)
--- NOTE | 2024-05-20 13:02 | PN.CDI ---
Addendum entered and electronically signed by Carlos Johnson PA-C 05/20/24 13:43:
Pt with acute postop pulmonary insufficiency,requiring supplemental O2
Original Note:
CDI
- -
CDI:
Physician Documentation Request
Admit Date: 05/18/24 05:06
Dear Doctor Raimundo,
Patient admitted with CAD s/p CABG x 3 (AUGUSTO to LAD, GSV to D2, GSV to OM, Endarterectomy to SVG-D2); ELAA w/ 45mm AtriClip).
05/20 CT note, 'started bipap overnight d/t respiratory acidosis'
05/20 PCN, ' pox 93% on BiPap 15/5 6L, lung sounds diminished.'
Selected Entries
05/18/24
20:00 05/18/24
22:41 05/19/24
02:00
Nasal Cannula flow liters per minute 6 4 2
05/19/24
07:00 05/19/24
15:31 05/19/24
23:55
Nasal Cannula flow liters per minute 2 2 6
Please clarify which of the following accurately represents the patient's respiratory status following surgery:
Acute post- op pulmonary insufficiency
Respiratory acidosis only
Other
Additional information for Pulmonary Insufficiency:
Consider when patients require intermediate frame tender oxygen therapy postoperatively
Weaned off oxygen initially then requiring supplemental oxygen
No other definitive diagnosis to support the need for oxygen (COPD exac, CHF etc.)
Unable to wean from vent
When criteria for respiratory failure not present
May extend stay or require additional resources; may need home O2
Use of terms such as suspected, likely, concern for, or probable (associated with a specific diagnosis that is being evaluated, monitored, or treated as if it exists) are acceptable and can be coded in the inpatient setting, when documented at the
time of discharge.
Thank you,
Erin WHITE,RN,CCDS
CDI Specialist
Available via [place] text
Please use your independent medical judgment in providing your response.
[2024-05-20] MEDS: NSS IV (14:29)
[2024-05-20 14:55] LABS: Glucose - Point of Care 166 mg/dl (70-99)
[2024-05-20 15:20] LABS: Mixed Venous O2 Saturation 62.7 %
[2024-05-20] MEDS: PACERONE 200 MG PO ×2 (16:00→22:17)
[2024-05-20] MEDS: FLEXERIL 5 MG PO (16:10)
--- NOTE | 2024-05-20 16:17 | CM ---
Reviewed chart. Met with and Mrs. Ybarra to review discharge plans. He states he is feeling okay. Will need to see if current functional level to see if he will have any skilled care needs. Prior to admission he resides with his spouse in a
two story home with one step to enter. Prior to admission he was independent with ambulation and adls. Medical work-up in progress. The discharge plan is to to return home with his spouse and a home visit by the Transitional Care Nurse verses
some level of inpatient rehab. if indicated when medically stable.
--- NOTE | 2024-05-20 16:36 | PTCARENOTE ---
Tolerated sitting up in the chair x 3 hours. Assst x 2 back to bed. VSS. Dobutamine decreased per order. pulse ox 95-97% on 4 L , will monitor closely. Pain well controlled at present. Assessment otherwise unchanged from prior,.
[2024-05-20 16:51] LABS: Mixed Venous O2 Saturation 49.6 %
[2024-05-20] MEDS: CORDARONE 518 MG IV (16:55)
[2024-05-20] MEDS: LASIX 60 MG IV (16:56)
[2024-05-20] MEDS: LIPITOR 40 MG PO (17:00)
[2024-05-20 17:02] LABS: Glucose - Point of Care 138 mg/dl (70-99)
--- NOTE | 2024-05-20 17:30 | PTCARENOTE ---
Lt radial A line very positional , Anesthesia over to inspect. NO changes made
[2024-05-20] MEDS: NSS 500 IV (18:43)
[2024-05-20 19:06] LABS: Glucose - Point of Care 131 mg/dl (70-99)
[2024-05-20 21:08] LABS: Glucose - Point of Care 140 mg/dl (70-99)
[2024-05-20 21:21] LABS: HCO3 24.2 mmol/L (21-28); Ionized Calcium 1.16 mMOL/L (1.15-1.33); O2 Saturation % 97.5 % (94-98); PCO2 47 mmHg (35-48); PO2 100 mmHg (83-108); Potassium 4.3 mMOL/L (3.5-5.1); Sodium 131 mMOL/L (136-145); pH 7.32 (7.35-7.45)
[2024-05-20] MEDS: CALCIUM GLUCONATE 290 MG IV (22:17)
[2024-05-20] MEDS: TYLENOL 1000 MG PO (22:17)
[2024-05-20] MEDS: MUCINEX 600 MG PO (22:17)
[2024-05-20 23:06] LABS: Glucose - Point of Care 136 mg/dl (70-99)
[2024-05-21] VITALS (42 sets, daily range): BP systolic 75–138; BP diastolic 50–117; PULSE 2–107; BMI 43.4
--- NOTE | 2024-05-21 | PTCARENOTE ---
assumed care of pt from previous RN. pt A&Ox4, resting in bed at time of assessment. a fib on tele-monitor. temp epicardial v-wires plugged into pulse generator w/ backup settings VVI 45/5/1.5. currently on BIPAP, POX 95-96%. abd s/n, round, obese.
hypoactive BS. ulloa catheter draining clear, yellow urine. all surgical sites stable, CDI. R IJ cordis w/ swan floated to 46 cm. L radial a-line. all lines leveled, zeroed, flushed. PIV intact. see worklist for complete nursing assessment,
interventions, VS, and I&Os.
[2024-05-21 01:22] LABS: Glucose - Point of Care 94 mg/dl (70-99)
[2024-05-21 01:22] LABS: Glucose - Point of Care 103 mg/dl (70-99)
[2024-05-21] MEDS: DILAUDID 0.25 MG IV (01:50)
[2024-05-21 02:01] LABS: Glucose - Point of Care 116 mg/dl (70-99)
--- NOTE | 2024-05-21 02:26 | W.PN.CT ---
Today's Communication / Plan
-
Plan:
-No major issues overnight. Hemodynamically and neurologically intact
-Noted to have postop a-fib/Atrial tachycardia, on Amiodarone gtt @ 0.5 mg/min. Also on Dobutamine gtt @ 1, wean off, likely contributing to tachyarrhythmia
-MVO2 is 70.4/73%, CI 3.11. Consider weaning off dobutamine
-Noted to have postop hypotension, weaned off Levophed overnight, was on 2 mcg. BB is on hold
-Received diuresis yesterday (total of 100 mg IV lasix) f/u electrolytes
-Hyponatremia improving, 134
-Acute postop CARLOTTA on CKD, improving 2.5, was 2.8 yesterday (lives around 1.4-2.0)
-Has protuberant abdomen: diminished BS, soft, N/T, +flatus, no BM, likely contributing to O2 dependence given increased intrathoracic pressure from abdomen. Chest tube d/c'd yesterday
-On CPAP during sleep with 7L O2 support, wean
-D/C a-line and swan
-D/C insulin gtt
-Maintain temporary PW wires (will cut before d/c home)
-Keep cordis another day
-Keep ulloa another day
-OOB into chair/Ambulate
Assessment / Plan
-
- mv-CAD - s/p CABG x 3 (AUGUSTO to LAD, GSV to D2, GSV to OM, Endarterectomy to SVG-D2); ELAA w/ 45mm AtriClip by Dr. Eubanks on 05/18/24, pod #3
- Post-DAVID: LVEF 35%, unchanged MR
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
- HTN/HLD
- CKD III (baseline Cr 1.6-2)
- Hx RBBB w/ PACs & PVCs, SNVT
- Class 3 obesity (BMI 41)
- Suspected VERONICA
- Mild MR
- DM II (HgA1c 6.8)
- s/p prostate bx with urolift 2018
- hx TIA 2014
- Former alcoholic
- ED
- GI bleed 2019
- OA, s/p b/l TKA 2017
- L RTC repair
- Nephrolithiasis with multiple lithotripsies
- Acute postop blood loss anemia
- Acute postop coagulopathy - s/p 1 unit platelet
- Acute postop thrombocytopenia
- Acute postop atelectasis
- Acute postop hypovolemia with subsequent hypervolemia
- Acute postop hyponatremia, 131
- CARLOTTA in setting of CKD
- Acute postop respiratory acidosis - started on bipap at night.
- Acute postop a-fib- tx with Amio boluses and drip
Discussed patient care with: Cardiology, Nursing, Respiratory Therapy, Pharmacy and Care Team
Subjective
Procedure
- s/p CABG x 3 (AUGUSTO to LAD, GSV to D2, GSV to OM); ELAA w/ 45mm AtriClip by Dr. Eubanks on 05/18/24
-
Date of Service: May 21, 2024
Pt c/o mild incisional pain
Objective Data
-
PT 16.3 Sec (11.4-14.6) H 05/18/24 14:56
INR 1.25 05/18/24 14:56
APTT 31.4 Sec (23.4-35.0) 05/18/24 14:56
Vital Signs
Vital Signs
Temp Pulse Resp BP Pulse Ox
100 F 114 20 108/62 93
05/21/24 02:00 05/21/24 01:30 05/21/24 01:30 05/21/24 01:30 05/21/24 02:00
CT Intake/Output/Weight
05/20/24 05/20/24 05/21/24
06:59 18:59 06:59
Intake Total 877.6 / 1555.5 1036.0 / 1168.2 132.2 / 1168.2
Output Total 510 / 1125 675 / 1775 1100 / 1775
Balance 367.6 / 430.5 361.0 / -606.8 -967.8 / -606.8
SaO2: 93 (CPAP with 7L O2)
Physical Exam
-
General: Awake, Oriented and AOx3
Cardiovascular: Regular rate & rhythm, No Murmurs, No Rub and No Gallop
Respiratory: Decreased Breath Sounds (at bases)
Sternum: Stable
Incision: Clean, Dry, Intact and Dressing Intact
Extremities: Edema +1
Protuberant abdomen: diminished BS, soft, N/T, +flatus, no BM
Data Reviewed
-
Lab Results: Results Reviewed
Medications: Active Meds Reviewed
Chest X-Ray: Report Reviewed and Image Reviewed
ECG: Report Reviewed and Image Reviewed
[2024-05-21 03:20] LABS: Glucose - Point of Care 111 mg/dl (70-99)
[2024-05-21] MEDS: NOVOLIN R INSULIN INFUSION IV (03:31)
--- NOTE | 2024-05-21 04:20 | PTCARENOTE ---
assessment remains unchanged. a fib on tele-monitor. POX 95% on CPAP w/ 7 L O2. AM labs collected and sent.
[2024-05-21 04:21] LABS: Glucose - Point of Care 109 mg/dl (70-99)
[2024-05-21] MEDS: NOVOLIN R INSULIN INFUSION 100 IV (04:22)
[2024-05-21 04:31] LABS: Mixed Venous O2 Saturation 70.4 %
[2024-05-21 05:01] LABS: Hematocrit 27.1 % (39.0-52.0); Hemoglobin 8.8 g/dL (13.0-18.0); Mean Corp Hgb Conc. 32.5 g/dL (33.0-37.0); Mean Corpuscular Hgb 30.9 pg (27.0-31.0); Mean Corpuscular Volume 95.1 fL (80.0-94.0); Mean Platelet Volume 11.1 fL (7.4-10.4); Platelet Count 83 10^3/uL (130-400); Red Blood Cell Count 2.85 10^6/uL (4.70-6.10); Red Cell Dist. Width 14.3 % (11.5-14.5); White Blood Cell Count 13.2 10^3/uL (4.8-10.8)
[2024-05-21 05:09] LABS: Blood Urea Nitrogen 55 mg/dl (9-20); Calcium 8.5 mg/dl (8.4-10.2); Carbon Dioxide 26 mmol/L (22-30); Chloride 101 mmol/L (98-107); Estimated Creatinine Clearance 35 ml/min; Glucose 93 mg/dl (70-99); Magnesium 2.4 mg/dl (1.6-2.3); Potassium 4.1 mmol/L (3.5-5.1); Sodium 134 mmol/L (135-145)
[2024-05-21] MEDS: TYLENOL 1000 MG PO ×3 (07:30→21:36)
--- NOTE | 2024-05-21 08:07 | W.PN.CD ---
Today's Communication / Plan
-
The patient is in acute HFrEF while still requiring pressor/inotrope support.
Favor starting bumetanide gtt at 1 mg/hour.
Wean norepinephrine, consider gentle phenylephrine to support SVR with dobutamine continuing to support CI.
Check UA.
Check INR.
Maintain PA catheter for the time being.
Anticoagulation at surgery's discretion, but ok to hold in light of LAAE and thrombocytopenia.
Impression / Plan
-
Impression/Plan: 73 y/o male (follows with Dr. Woods) with hypertension, obesity, CKD, NSVT, PVC's, atrial ectopy, RBBB. OP monitor revealed AIVR as predominant rhythm, leading to an echo which revealed cardiomyopathy, LVEF 35%. Subsequent cath
showed severe multivessel coronary artery disease. He is admitted for elective CABG.
#Severe multivessel CAD
-Chronic.
-S/P CABG x 3 (AUGUSTO to LAD, GSV to D2 requiring endarterectomy, GSV to OM) with Dr. Eubanks, 05/18/23.
-Post-op EKG SB with 1st degree AVB, PVC, IVCD. Tele: SR, PAC/s, PVC's.
-Intra-op DAVID EF 30-35%.
-Expectant post operative mangement.
-Wean pressors/inotropes for MAP > 65 mmHg, CI > 1.8 L/min/m2.
-Encourage incentive spirometry.
-Ambulate when appropriate.
-CTS management of pain, chest tubes.
-Continue atorvastatin.
#ICM/HFrEF
-Patient is in acute HFrEF due to obligatory volume from surgery.
-LVEF 30-35% on DAVID.
-CI is normal/high (3.11 L/min/m2) with severely elevated filling pressures and a low SVR.
-BP is reasonably stable, though requiring pressors.
-Wean norepinephrine and use phenylephrine (gently) with dobutamine.
-Favor start bumetanide gtt at 1 mg/hour (avoid peaks/valleys of bolus dosing).
#Acute on CKD3b
-CARLOTTA post op.
-Creatinine 2.9 --> 2.8 --> 2.5 (baseline 1.6-2.0).
-I suspect cardiorenal syndrome.
-Favor bumetanide gtt as above.
-Check UA. Unlikely to be acute obstruction.
#Post operative atrial fibrillation
-Currently in [ ].
-Rate/rhythm control with amiodarone.
-CHADS2-Vasc = 5 (CHF, HTN, Age x1, DM, Vascular Disease).
-S/P LAAE (#45 AtriClip) with Dr. Eubanks, 05/18/2024.
-Therapeutic anticoagulation at CT surgery's discretion.
#Heme
-Worsening anemia/thrombocytopenia.
-Data suggests dilution (increased weight, decrease in all cell lines).
-Check INR to r/o coagulopathy.
-Monitor with diuresis.
-If fall off continues, consider continued blood loss, MAHA.
-
#Hx of AIVR, RBBB:
-Chronic.
-Monitor telemetry.
#DM:
-Chronic.
-Per primary team.
#Remote GI bleed
#Alcoholism in recovery
Critical Care Time = 45 minutes.
Subjective/Interval History:
Required BiPAP overnight from 05/19-05/20.
Creatinine roland to 2.9.
Norepinephrine restarted for renal perfusion.
Nasal CPAP this morning.
Weight is up 6.8 kg from baseline.
HR stable around 110-120.
PA diastolic pressures never below 21 mmHg, currently 26 mmHg.
CI 3.11 L/min/m2.
SVR is low, consistenly in the 600's.
Hbg 8.8 <-- 9.8 <-- 11.6.
Platelets 83 <-- 89 <-- 141.
DATA:
Spirometry, 04/26/2024:
In Summary:
There is no evidence for airflow obstruction. There is suggestion of restriction. Evidence for the proportional decline on the FEV1 and FVC. Lung volume measurements and diffusion capacity may be of help. Clinical correlation is advised.
Intraprocedural DAVID, 05/18/2024:
CONCLUSIONS
Normal size ventricle with global hypokinesis. LVEF is 30-35%. The anterior
and anterior apical bain are most severely affected.
Normal right ventricular systolic function.
Grossly normal aortic valve.
Trace to mild mitral regurgitation.
Grossly normal tricuspid valve.
Grade III atheromatous disease of the arch and descending aorta.
Normal left atrial appendage.
POST OPERATIVE FINDINGS
S/P CABG x 3: MCCORMICK-LAD; SVG OM; SVG-PDA.
The left atrial appendage is no longer visible with color flow Doppler
confirming the absence of flow. The left ventricular function is mildly
improved to 35-40% with the aid of dobutamine support. Otherwise unchanged
exam.
CXR, 05/21/2024:
IMPRESSION:
Discontinued chest tubes and mediastinal tube without pneumothorax. Stable cardiomediastinal margins. Increased opacity in retrocardiac left lower lobe; possible considerations include increasing pleural effusion, atelectasis, or pneumonia.
Physical Exam
Vital Signs/Labs
Vital Signs
Temp Pulse Resp BP Pulse Ox
37.6 C 116 21 128/103 95
05/21/24 07:00 05/21/24 07:30 05/21/24 07:30 05/21/24 07:00 05/21/24 07:30
05/19/24 05/20/24 05/21/24
11:59 11:59 11:59
Actual Weight 125.2 kg 125.9 kg
05/21/24 04:18
05/21/24 04:18
PT 16.3 Sec (11.4-14.6) H 05/18/24 14:56
INR 1.25 05/18/24 14:56
APTT 31.4 Sec (23.4-35.0) 05/18/24 14:56
Magnesium 2.4 mg/dl (1.6-2.3) H 05/21/24 04:18
Physical Exam
Constitutional: No acute distress and Comfortable
EENT: Anicteric and Moist mucous membranes
Cardiovascular: Rhythm/rate is irregular and Pedal edema present (2-3+ pitting bilateral LE edema.)
Respiratory: Labored respirations and Other (Decreased throughout.)
GI: Soft, Distention absent, Flat, Non tender and Normal bowel sounds
Neuro/Psych: AO x 3
Data Reviewed
-
Date of Service: May 21, 2024
Medical Decision Making: Reviewed Test Results, Independent Historian Assessment and Test Interpretation
EKG: Tracing Personally Visualized and interpreted and Report Reviewed by me
Echo: Report Reviewed by me
X-Ray/CT/US/MRI/NUC/PET: Image Personally Visualized and interpreted and Report Reviewed by me
Medical Tests (PFT, Pathology etc): Report Reviewed by me
Labs: Labs Reviewed by me
Old Records: Reviewed
--- NOTE | 2024-05-21 08:33 | W.PN.INTV ---
Today's Communication / Plan
Recommendations
Remains on amiodarone drip with labile heart rate
Rate control with goal HR <110
Diuresis as tolerated
Nocturnal BiPAP
Check VBG tomorrow morning
Up OOB as tolerated
Encourage incentive spirometer use
Cardiac rehab consult
Rd Mechanical Engineer service will continue to follow along until downgraded to CVICU�telemetry status
Assessment
-
73-year-old obese male with a history of hypertension, hyperlipidemia, chronic kidney disease, cardiomyopathy, GI bleed, alcoholic in recovery, and diabetes found to have significant multivessel CAD and underwent CABG-pulmonary was consulted for
postoperative ventilator/critical care management 05/18/2024.
Multivessel coronary artery disease with preoperative reduced EF 35%
Status post CABG x 3-Hyacinth-LAD, GSV-D2, GSV-OM with left atrial appendage exclusion with 45 mm AtriClip - Dr. Eubanks-05/18/2024
Postop hypercapnia and respiratory acidosis requiring BiPAP
Paroxysmal atrial fibrillation-
Conditions present prior to admission:
Hypertension.
Hyperlipidemia.
Renal calculi.
Diabetes.
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
Prostate cancer.
TIA.
Chronic kidney disease stage III.
GI bleed-2019
Diverticulosis.
Colon polyps
Remote diverticulitis
Recurrent nephrolithiasis
Remote bowel obstruction
Morbid obesity.
Bilateral knee replacement 2018. UroLift 2019. Facial surgery 2021. Left rotator cuff repair. Prostate biopsy. Mohs surgery x 3. Multiple lithotripsies.
Plan
Tolerated extubation
Wean O2 flow rate while keeping SpO2 >90-94%
Encourage incentive spirometry use q1hr while awake
Increase activity as tolerated
Aspiration precautions
Continue nocturnal BiPAP on 15/09
Check VBG tomorrow AM
Pulmonary artery catheter removed
Pressors wean as tolerated - off all pressors
Weaned off dobutamine, remains on amio gtt
Monitor rhythm-paroxysmal atrial fibrillation with labile HR
Cardiology following
Diuresis as tolerated
Monitor renal function, electrolytes, intake/output, lower extremity edema and weight
Replace electrolytes as needed
Consider nephrology evaluation if renal function continues to worsen
All chest tubes removed on 05/20/2024
Follow hemoglobin
Continue to follow platelet count and coags
Transfuse blood product as needed to keep Hb>7-8, plt>50k (given post operative status)
Follow blood sugar with goal BG 140-180mg/dL
Insulin supplementation continues as needed
Early nutrition
Early mobilization
DVT prophylaxis
Patient states had sleep study 10 years ago and 'did not have sleep apnea'-reviewed associations and risks of untreated sleep apnea, willing to retest
Patient is at significant risk for obstructive sleep apnea-recommend outpatient evaluation-will leave information on chart
Total time spent today was 78 minutes for this encounter. Time includes reviewing laboratory test/imaging results, reviewing pertinent medical records, obtaining and reviewing medical history, performing an appropriate exam, ordering medications,
tests and procedures. Time also includes documentation of this encounter, coordinating patient care and communicating with other healthcare professionals. Total time does not include separately billed tests performed on this date of service.
Diagnostic data:
CT chest 05/03/2024-severe coronary artery calcifications, no lung consolidations, effusions, pneumothorax, masses or nodules
Spirometry 04/22/2024-FEV1 1.84-64%, FVC 2.39-64%, mild to moderate restriction.
Nuclear stress test 03/12/2021-EF 50%, moderate risk study ischemia suspected
Echocardiogram 04/05/2024-EF 35%, mild mitral regurgitation,
Cardiac catheterization 04/22/2024-severe multivessel CAD, RA 19, PA 41/27, PCWP-22, cardiac index 2.2
Subjective Dataa
Subjective Data
Date of Service:
Date of Service: May 21, 2024
Chief Complaint: Rd Mechanical Engineer Follow Up, Pulmonary Follow Up and Vent Management Follow Up
Subjective:
Patient seen and evaluated today at bedside. Sitting in chair with at bedside. All questions were answered. Used BiPAP overnight on 15/5cmH2O bled with 6 L/min. Currently on 2 L/min nasal cannula and saturating 95%. Heart rate 95�1 15 and
on amiodarone drip at 0.5 mg/min. BP 130/59. He feels like he is slowly improving. Denies abdominal pain, nausea, fevers or chills.
Review of Systems
General: Other (Negative unless mentioned above)
Objective Data
Data Reviewed
Vital Signs / I&O / Oxygen:
Vital Signs
Temp Pulse Resp BP Pulse Ox
99.7 F 116 21 128/103 94
05/21/24 07:00 05/21/24 07:30 05/21/24 07:30 05/21/24 07:00 05/21/24 08:38
Intake and Output
05/20/24 05/21/24 05/22/24
06:59 06:59 06:59
Intake Total 1555.5 / 1555.5 1378.7 / 1419.3 40.6 / 40.6
Output Total 1125 / 1125 2145 / 2265 120 / 120
Balance 430.5 / 430.5 -766.3 / -845.7 -79.4 / -79.4
SaO2 [CPAP/PSV] 98
SaO2 [SIMV] 98
SaO2 94
Nasal Cannula flow liters per 3
minute
Physical Exam
General: Respiratory Distress (n), Comfortable, Chills (n) and Sweats (n)
HEENT: Normocephalic, Anicteric, Moist Mucous Membranes and Other (Thick neck)
Cardiovascular: Irregular Rhythm, Peripheral Edema (+1 lower extremity edema bilaterally) and Other (Tachycardic)
Respiratory: Wheeze (n), Crackles (Bibasilar), Rhonchi (n), Non-Labored Respirations, Accessory Resp Muscle Use (n) and Stridor (n)
GI: Soft, Distended (Abdominal obesity), Non Tender and Normal Bowel Sounds
Neurology: AO x 3 and Tremors (n)
Skin: Warm, Dry, Cyanosis (n), Jaundice (n) and Rash (n)
Labs/Micro/Reports
Lab Data
05/21/24 04:18
05/21/24 04:18
Laboratory Results
05/20/24 05/20/24
11:55 21:13
pH 7.33 L 7.32 L
pCO2 46 47
pO2 73 L 100
HCO3 24.3 24.2
O2 Delivery Level Not Reportable
[2024-05-21] MEDS: FLEXERIL 5 MG PO ×2 (08:53→17:47)
[2024-05-21] MEDS: LANTUS 0.1 UNITS SC ×2 (08:54→21:36)
[2024-05-21] MEDS: LASIX 40 MG IV ×2 (08:56→15:57)
[2024-05-21] MEDS: LOW STRENGTH ASPIRIN 81 MG PO (08:56)
[2024-05-21] MEDS: BACTROBAN 2% OINTMENT 1 APPLIC NASAL ×2 (08:56→19:56)
[2024-05-21] MEDS: PLAVIX 75 MG PO (08:56)
[2024-05-21] MEDS: SENOKOT-S 1 TABLET PO ×2 (08:56→19:56)
[2024-05-21] MEDS: LIDOCAINE 4% PATCH 1 PATCH TOPICAL (08:56)
[2024-05-21] MEDS: PROTONIX 40 MG PO (08:56)
[2024-05-21] MEDS: MUCINEX 600 MG PO ×2 (08:56→19:56)
[2024-05-21] MEDS: PACERONE 200 MG PO ×3 (08:56→21:36)
--- NOTE | 2024-05-21 09:00 | PTCARENOTE ---
Assumed care of patient. Walking rounds completed with previous RN. Pt assessed while he was lying in bed. Pt drowsy, but oriented x4. Pt rates sternal pain 2/10-see MAR. Denies nausea and shortness of breath. TAVERA with equal strength, weak. Afib on
tele with rates in the 100s-110s. BP 114/53. CI 2.84. PA 39/27, CVP 14. Bilateral radial and DP pulses weakly palpable. Generalized edema +2. Epicardial v-wire to back up 45/5/1.5, no pacing noted. POX 96% on 4L NC. Lungs diminished throughout.
Productive cough with contreras/gale sputum. IS encouraged-750mL achieved. Abdomen round, obese, nontender. +BS. Pt reports passing gas. [place] catheter intact draining adequate amounts of jey urine. Sternal incision covered with Aquacel-CDI. Right groin
puncture, WILEY. Right SVG harvest approximated with skin glue, [employer]. Right IJ cordis and swan floated to 46cm. Left radial rylie and arm board intact. All lines flushed, leveled, and zeroed. Right hand 20g PIV intact. Insulin gtt d/c per orders.
Amiodarone infusing at 1.5mg/min. See MAR for medication administration. See worklist for complete nursing assessment. Plan of care reviewed and patient in agreement. Dobutamine titrated off per orders at 0745. [place] d/c per orders.
[2024-05-21 09:49] LABS: Glucose - Point of Care 145 mg/dl (70-99)
[2024-05-21 09:49] LABS: Glucose - Point of Care 82 mg/dl (70-99)
[2024-05-21] MEDS: NOVOLOG FLEXPEN-HIGH RESISTANCE 2 UNITS SC ×3 (10:48→17:50)
[2024-05-21 10:51] LABS: Glucose - Point of Care 182 mg/dl (70-99)
--- NOTE | 2024-05-21 11:00 | PTCARENOTE ---
Updated CT GLASS BULB SILVERER with UO since IV lasix. Orders to hold bumex gtt at this time.
[2024-05-21] MEDS: LOPRESSOR 12.5 MG PO (12:05)
--- NOTE | 2024-05-21 13:00 | PTCARENOTE ---
Pt reassessed. Remains in Afib, rates 80s-90s. BP 112/63. POX 96% on 2L NC. Surgical sites stable. Monaco draining adequate amounts of clear yellow urine. Cordis, Padmaja, and PIV intact.
--- NOTE | 2024-05-21 13:50 | PTCARENOTE ---
Pt assisted OOB with 2 assist, BP 75/64 via cuff, pt asymptomatic. Recovered quickly. Labs obtained & sent. Eating lunch in chair, family at bedside.
[2024-05-21 13:58] LABS: Glucose - Point of Care 175 mg/dl (70-99)
[2024-05-21 14:35] LABS: Blood Urea Nitrogen 59 mg/dl (9-20); Carbon Dioxide 26 mmol/L (22-30); Chloride 100 mmol/L (98-107); Estimated Creatinine Clearance 41 ml/min; Glucose 162 mg/dl (70-99); Sodium 134 mmol/L (135-145); eGFR 33.03
--- NOTE | 2024-05-21 16:00 | PTCARENOTE ---
Pt reassessed. Pt ambulated from the chair to the door with 2 assist. Tolerated. Afib on tele with rates in the 90s-100s. BP 108/56 via cuff, 124/55 via left radial rylie. POX 88% on RA, 94% on 2L NC. Surgical sites stable. Monaco continues to drain
adequate amounts of clear yellow urine. No other changes from previous assessment.
[2024-05-21] MEDS: LIPITOR 40 MG PO (17:47)
[2024-05-21 17:50] LABS: Glucose - Point of Care 180 mg/dl (70-99)
[2024-05-21] MEDS: LOPRESSOR 2.5 MG IV (19:56)
--- NOTE | 2024-05-21 20:00 | PTCARENOTE ---
assumed care of pt from previous RN. pt A&Ox4, resting in bed at time of assessment. a fib on tele-monitor. temp epicardial v-wires plugged into pulse generator w/ backup settings VVI 45/5/1.5. POX 94-97% on 2 L NC. abd round, obese, firm. +BS.
ulloa catheter draining clear, yellow urine. all surigcal sites stable, CDI. R IJ Cordis w/ KVO. PIV intact. see worklist for complete nursing assessment, interventions, VS, and I&Os.
[2024-05-21 20:33] LABS: Blood Urea Nitrogen 63 mg/dl (9-20); Calcium 8.1 mg/dl (8.4-10.2); Carbon Dioxide 28 mmol/L (22-30); Chloride 100 mmol/L (98-107); Estimated Creatinine Clearance 43 ml/min; Glucose 152 mg/dl (70-99); Potassium 3.7 mmol/L (3.5-5.1); Sodium 134 mmol/L (135-145); eGFR 35.02
[2024-05-21 21:27] LABS: Glucose - Point of Care 175 mg/dl (70-99)
[2024-05-21] MEDS: KCL 40 MEQ PO (21:35)
[2024-05-21] MEDS: CALCIUM GLUCONATE 100 IV (21:36)
[2024-05-21] MEDS: MELATONIN 5 MG PO (23:57)
[2024-05-22] VITALS (16 sets, daily range): BP systolic 90–136; BP diastolic 46–86; PULSE 2–92; BMI 42.2
--- NOTE | 2024-05-22 | PTCARENOTE ---
assessment remains unchanged. VSS.
--- NOTE | 2024-05-22 04:00 | PTCARENOTE ---
no acute changes. VSS.
[2024-05-22] MEDS: TYLENOL 1000 MG PO ×3 (04:55→21:09)
--- NOTE | 2024-05-22 05:00 | W.PN.CT ---
Today's Communication / Plan
-
Plan:
-No major issues overnight. Hemodynamically and neurologically intact
-Noted to have postop a-fib/Atrial tachycardia, completed Amiodarone gtt last night. Got bolus of Amiodarone this AM, PO dose increased to 400 TID
-Received 1u prbc yesterday for hgb 8.8 yesterday, 9.3 today
-Will discuss DOAC, was a left atrial appendage clip, with postop thrombocytopenia, 89->83-> 107 today
-Postop hypotension has improved, tolerating diuresis and BB, will increase BB if BP permits
-Hyponatremia has resolved, 134-> 136 today
-Cont. diuresis, 24hr u/o 4265
-Acute postop CARLOTTA on CKD has resolved, 1.7 today, was 2.5/2.0 yesterday, peaked @ 2.8, (lives around 1.4-2.0). D/C ulloa today
-On CPAP during sleep
-D/C'd insulin gtt yesterday 05/21/24
-Maintain temporary PW wires (will cut before d/c home)
-Keep cordis another day
-OOB into chair/Ambulate
Assessment / Plan
-
- mv-CAD - s/p CABG x 3 (AUGUSTO to LAD, GSV to D2, GSV to OM, Endarterectomy to SVG-D2); ELAA w/ 45mm AtriClip by Dr. Eubanks on 05/18/24, pod #4
- Post-DAVID: LVEF 35%, unchanged MR
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
- HTN/HLD
- CKD III (baseline Cr 1.6-2)
- Hx RBBB w/ PACs & PVCs, SNVT
- Class 3 obesity (BMI 41)
- Suspected VERONICA
- Mild MR
- DM II (HgA1c 6.8)
- s/p prostate bx with urolift 2018
- hx TIA 2014
- Former alcoholic
- ED
- GI bleed 2019
- OA, s/p b/l TKA 2017
- L RTC repair
- Nephrolithiasis with multiple lithotripsies
- Acute postop blood loss anemia
- Acute postop coagulopathy - s/p 1 unit platelet
- Acute postop thrombocytopenia
- Acute postop atelectasis
- Acute postop hypovolemia with subsequent hypervolemia
- Acute postop hyponatremia, 131
- CARLOTTA in setting of CKD
- Acute postop respiratory acidosis - started on bipap at [facility]
- Acute postop pulmonary insufficiency
- Acute postop a-fib- tx with Amio boluses and drip
Discussed patient care with: Cardiology, Nursing, Respiratory Therapy, Pharmacy and Care Team
Subjective
Procedure
- s/p CABG x 3 (AUGUSTO to LAD, GSV to D2, GSV to OM); ELAA w/ 45mm AtriClip by Dr. Eubanks on 05/18/24
-
Date of Service: May 22, 2024
Pt c/o mild incisional pain, otherwise feels well
Objective Data
-
PT 16.3 Sec (11.4-14.6) H 05/18/24 14:56
INR 1.25 05/18/24 14:56
APTT 31.4 Sec (23.4-35.0) 05/18/24 14:56
Vital Signs
Vital Signs
Temp Pulse Resp BP Pulse Ox
98.2 F 104 21 108/56 88
05/22/24 00:00 05/22/24 04:00 05/22/24 04:00 05/22/24 04:00 05/22/24 04:00
CT Intake/Output/Weight
05/21/24 05/21/24 05/22/24
06:59 18:59 06:59
Intake Total 342.7 / 1419.3 864.6 / 1214.9 350.3 / 1214.9
Output Total 1470 / 2265 2300 / 4115 1815 / 4115
Balance -1127.3 / -845.7 -1435.4 / -2900.1 -1464.7 / -2900.1
SaO2: 93 (3L NC)
Physical Exam
-
General: Awake, Oriented and AOx3
Cardiovascular: Irregular rate & rhythm, No Murmurs, No Rub and No Gallop
Respiratory: Decreased Breath Sounds (at bases)
Sternum: Stable
Incision: Clean, Dry, Intact and Dressing Intact
Extremities: Other (+trace edema)
Data Reviewed
-
Lab Results: Results Reviewed
Medications: Active Meds Reviewed
Chest X-Ray: Report Reviewed and Image Reviewed
ECG: Report Reviewed and Image Reviewed
[2024-05-22] MEDS: CORDARONE 103 MG IV ×2 (05:34→20:00)
[2024-05-22 05:36] LABS: Hematocrit 28.3 % (39.0-52.0); Hemoglobin 9.3 g/dL (13.0-18.0); Mean Corp Hgb Conc. 32.9 g/dL (33.0-37.0); Mean Corpuscular Hgb 31.2 pg (27.0-31.0); Mean Platelet Volume 11.4 fL (7.4-10.4); Platelet Count 107 10^3/uL (130-400); Red Blood Cell Count 2.98 10^6/uL (4.70-6.10); Red Cell Dist. Width 14.5 % (11.5-14.5); White Blood Cell Count 11.8 10^3/uL (4.8-10.8)
[2024-05-22 05:52] LABS: Blood Urea Nitrogen 60 mg/dl (9-20); Calcium 8.3 mg/dl (8.4-10.2); Carbon Dioxide 29 mmol/L (22-30); Chloride 101 mmol/L (98-107); Estimated Creatinine Clearance 50 ml/min; Glucose 133 mg/dl (70-99); Magnesium 2.3 mg/dl (1.6-2.3); Potassium 4.2 mmol/L (3.5-5.1); Sodium 136 mmol/L (135-145); eGFR 42.57
--- NOTE | 2024-05-22 07:45 | PTCARENOTE ---
Resumed care of patient. Pt assessed while he was sitting in the chair. Pt alert and oriented x4. Denies pain, shortness of breath, and nausea. TAVERA with equal strength throughout. Ambulated 20' in the hallway with rolling walker. Afib on tele with
rates in the 100s-110s. BP 136/83. Bilateral radial pulses palpable. Bilateral DP pulses weakly palpable. Generalized +1 edema. Epicardial v-wire insulated. POX 92% on RA. Lungs diminished in the bases. IS encouraged-1000mL achieved. Productive
cough with gale/contreras sputum. Abdomen round, obese, nontender. +BS. +gas. [place] intact draining adequate amounts of clear yellow urine. Sternal incision covered with Aquacel-CDI. Old chest tube sites approximated with sutures intact. Right groin
puncture [employer], right SVG harvest approximated and WILEY. Right IJ cordis intact infusing NSS KVO. Right hand 20g PIV intact. See MAR for medication administration. See worklist for complete nursing assessment. Plan of care reviewed and patient in
agreement.
[2024-05-22 08:16] LABS: Glucose - Point of Care 166 mg/dl (70-99)
[2024-05-22] MEDS: LIDOCAINE 4% PATCH 1 PATCH TOPICAL (08:18)
[2024-05-22] MEDS: LANTUS 0.1 UNITS SC ×2 (08:18→21:09)
[2024-05-22] MEDS: PACERONE 400 MG PO ×3 (08:19→21:09)
[2024-05-22] MEDS: TOPROL XL 50 MG PO ×2 (08:19→19:58)
[2024-05-22] MEDS: BACTROBAN 2% OINTMENT 1 APPLIC NASAL (08:19)
[2024-05-22] MEDS: LASIX 40 MG IV ×2 (08:19→15:44)
[2024-05-22] MEDS: MUCINEX 600 MG PO ×2 (08:19→19:57)
[2024-05-22] MEDS: LOW STRENGTH ASPIRIN 81 MG PO (08:19)
[2024-05-22] MEDS: PROTONIX 40 MG PO (08:19)
[2024-05-22] MEDS: SENOKOT-S 1 TABLET PO ×2 (08:19→19:57)
--- NOTE | 2024-05-22 08:27 | W.PN.INTV ---
Today's Communication / Plan
Recommendations
Continue PO amio
Rate control with goal HR <110
Diuresis as tolerated
Nocturnal BiPAP refused -outpatient follow-up will be arranged to discuss sleep disordered breathing given suspicion for VERONICA and evidence of hypercapnic respiratory failure, likely OHS
Occasionally check VBG to trend pH + pCO2
Up OOB as tolerated
Encourage incentive spirometer use
Cardiac rehab consult
Patient is now CVICU�telemetry status. No additional recommendations at this time. Stamp Machine Servicer/Pulmonary service will now sign off. Please reconsult if there are any additional questions/concerns, or if patient's respiratory status deteriorates.
Assessment
-
73-year-old obese male with a history of hypertension, hyperlipidemia, chronic kidney disease, cardiomyopathy, GI bleed, alcoholic in recovery, and diabetes found to have significant multivessel CAD and underwent CABG-pulmonary was consulted for
postoperative ventilator/critical care management 05/18/2024.
Impression:
Multivessel coronary artery disease with preoperative reduced EF 35%
Status post CABG x 3-Hyacinth-LAD, GSV-D2, GSV-OM with left atrial appendage exclusion with 45 mm AtriClip - Dr. Eubanks-05/18/2024
Postop hypercapnia and respiratory acidosis requiring BiPAP
Paroxysmal atrial fibrillation-
Conditions present prior to admission:
Hypertension.
Hyperlipidemia.
Renal calculi.
Diabetes.
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
Prostate cancer.
TIA.
Chronic kidney disease stage III.
GI bleed-2019
Diverticulosis.
Colon polyps
Remote diverticulitis
Recurrent nephrolithiasis
Remote bowel obstruction
Morbid obesity.
Bilateral knee replacement 2018. UroLift 2019. Facial surgery 2021. Left rotator cuff repair. Prostate biopsy. Mohs surgery x 3. Multiple lithotripsies.
Plan
Tolerated extubation on 05/18/2024
Wean O2 flow rate while keeping SpO2 >90-94%
Encourage incentive spirometry use q1hr while awake
Increase activity as tolerated
Aspiration precautions
Continue nocturnal BiPAP on 15/09 - unfortunately he has not been tolerating this and refused last night. Will arrange outpatient follow up to discuss sleep-disordered breathing
Occasionally monitor pH + pCO2 with VBG
Pulmonary artery catheter removed
Pressors wean as tolerated - off all pressors
Weaned off dobutamine; amio gtt now transitioned to PO load
Monitor rhythm-paroxysmal atrial fibrillation with labile HR
Cardiology following
Diuresis as tolerated - on Lasix 40 mg IV BID
Monitor renal function, electrolytes, intake/output, lower extremity edema and weight
Replace electrolytes as needed
Consider nephrology evaluation if renal function continues to worsen
All chest tubes removed on 05/20/2024
Follow hemoglobin
Continue to follow platelet count and coags
Transfuse blood product as needed to keep Hb>7-8, plt>50k (given post operative status)
Follow blood sugar with goal BG 140-180mg/dL
Insulin supplementation continues as needed with ISS
Early nutrition
Early mobilization
DVT prophylaxis
Patient states had sleep study 10 years ago and 'did not have sleep apnea'-reviewed associations and risks of untreated sleep apnea, willing to retest
Patient is at significant risk for obstructive sleep apnea-recommend outpatient evaluation-will leave information on chart
Patient is now CVICU�telemetry status. No additional recommendations at this time. Stamp Machine Servicer/Pulmonary service will now sign off. Thank you for allowing us to be involved in the care of this patient. Please reconsult if there are any
additional questions/concerns, or if patient's respiratory status deteriorates.
Total time spent today was 36 minutes for this encounter. Time includes reviewing laboratory test/imaging results, reviewing pertinent medical records, obtaining and reviewing medical history, performing an appropriate exam, ordering medications,
tests and procedures. Time also includes documentation of this encounter, coordinating patient care and communicating with other healthcare professionals. Total time does not include separately billed tests performed on this date of service.
Diagnostic data:
CT chest 05/03/2024-severe coronary artery calcifications, no lung consolidations, effusions, pneumothorax, masses or nodules
Spirometry 04/22/2024-FEV1 1.84-64%, FVC 2.39-64%, mild to moderate restriction.
Nuclear stress test 03/12/2021-EF 50%, moderate risk study ischemia suspected
Echocardiogram 04/05/2024-EF 35%, mild mitral regurgitation,
Cardiac catheterization 04/22/2024-severe multivessel CAD, RA 19, PA 41/27, PCWP-22, cardiac index 2.2
Subjective Dataa
Subjective Data
Date of Service:
Date of Service: May 22, 2024
Chief Complaint: Stamp Machine Servicer Follow Up and Pulmonary Follow Up
Subjective:
Patient seen today and he is resting in bed in no acute distress. Patient's son, Jr, at bedside and all questions were answered. Patient did not get much sleep yesterday and he refused BiPAP last night. He was not tolerating it the night
before either. Patient currently on room air, breathing comfortably and saturating 95%. BP 113/71 and heart rate 96. Patient denies chest pain, DUPONT, abdominal pain, nausea, fevers or chills.
Review of Systems
General: Other (Negative unless mentioned above)
Objective Data
Data Reviewed
Vital Signs / I&O / Oxygen:
Vital Signs
Temp Pulse Resp BP Pulse Ox
97.9 F 108 16 136/83 93
05/22/24 08:00 05/22/24 08:00 05/22/24 08:00 05/22/24 08:00 05/22/24 08:00
Intake and Output
05/21/24 05/22/24 05/23/24
06:59 06:59 06:59
Intake Total 1378.7 / 1419.3 1334.9 / 1344.9
Output Total 2145 / 2265 4415 / 4480 165 / 165
Balance -766.3 / -845.7 -3080.1 / -3135.1 -145 / -145
SaO2 [CPAP/PSV] 98
SaO2 [SIMV] 98
SaO2 93
Nasal Cannula flow liters per 3
minute
Physical Exam
General: Respiratory Distress (n), Comfortable, Chills (n) and Sweats (n)
HEENT: Normocephalic, Anicteric, Moist Mucous Membranes and Other (Thick neck)
Cardiovascular: Irregular Rhythm, Peripheral Edema (+1 lower extremity edema bilaterally) and Other (Tachycardic)
Respiratory: Wheeze (n), Crackles (Bibasilar), Rhonchi (n), Non-Labored Respirations, Accessory Resp Muscle Use (n) and Stridor (n)
GI: Soft, Distended (Abdominal obesity), Non Tender and Normal Bowel Sounds
Neurology: Tremors (n) and Other (Sleepy today)
Skin: Warm, Dry, Cyanosis (n), Jaundice (n) and Rash (n)
Labs/Micro/Reports
Lab Data
05/22/24 04:28
05/22/24 04:28
[2024-05-22] MEDS: PLAVIX 75 MG PO (08:33)
[2024-05-22] MEDS: NOVOLOG FLEXPEN-HIGH RESISTANCE 2 UNITS SC ×2 (08:33→11:38)
[2024-05-22] MEDS: NSS IV (10:11)
[2024-05-22] MEDS: FLEXERIL 5 MG PO (10:44)
[2024-05-22 11:44] LABS: Glucose - Point of Care 206 mg/dl (70-99)
--- NOTE | 2024-05-22 11:45 | PTCARENOTE ---
Pt reassessed. Pt uncomfortable sitting in the chair. Assisted back to bed despite education on the importance of sitting up in the chair. Afib on tele with rates in the 90s. BP 113/71. POX 94% on RA. Surgical sites stable. Pt voiding clear yellow
urine in the urinal, bladder scanned 30 minutes after void for 165mL. No other acute changes from previous assessment. Family at bedside.
--- NOTE | 2024-05-22 13:11 | W.PN.CD ---
Today's Communication / Plan
-
anticoagulation when safe from a CT surgery standpoint
afib currently rate control
monitor reponse to diuretic and monitor renal function
Assess GDMT as patient recovers and renal function improves.
Impression / Plan
-
Impression/Plan: 73 y/o male (follows with Dr. Woods) with hypertension, obesity, CKD, NSVT, PVC's, atrial ectopy, RBBB. OP monitor revealed AIVR as predominant rhythm, leading to an echo which revealed cardiomyopathy, LVEF 35%. Subsequent cath
showed severe multivessel coronary artery disease. He is admitted for elective CABG.
#S/P CABG x 3 (AUGUSTO to LAD, GSV to D2 requiring endarterectomy, GSV to OM) with Dr. Eubanks, 05/18/23.
-Post-op EKG SB with 1st degree AVB, PVC, IVCD. Tele: SR, PAC/s, PVC's.
-Intra-op DAVID EF 30-35%.
#ICM/HFrEF
-Patient is in acute HFrEF due to obligatory volume from surgery.
-LVEF 30-35% on DAVID.
-on IV lasix
- monitor BP and renal function. Reassess GDMT as renal function improves,
#Acute on CKD3b
-CARLOTTA post op.
-Creatinine 2.9 --> 2.8 --> 2.5- 1.7
#Post operative atrial fibrillation
-Currently in afib
-Rate/rhythm control with amiodarone.
-CHADS2-Vasc = 5 (CHF, HTN, Age x1, DM, Vascular Disease).
-S/P LAAE (#45 AtriClip) with Dr. Eubanks, 05/18/2024.
-Therapeutic anticoagulation when safe from a CT surgery standpoint
anemia monitor
-
#Hx of AIVR, RBBB:
-Chronic.
-Monitor telemetry.
#DM:
-Chronic.
-Per primary team.
#Remote GI bleed
#Alcoholism in recovery
Subjective/Interval History:
Required BiPAP overnight from 05/19-05/20.
Creatinine roland to 2.9.
Norepinephrine restarted for renal perfusion.
Nasal CPAP this morning.
Weight is up 6.8 kg from baseline.
HR stable around 110-120.
PA diastolic pressures never below 21 mmHg, currently 26 mmHg.
CI 3.11 L/min/m2.
SVR is low, consistenly in the 600's.
Hbg 8.8 <-- 9.8 <-- 11.6.
Platelets 83 <-- 89 <-- 141.
DATA:
Spirometry, 04/26/2024:
In Summary:
There is no evidence for airflow obstruction. There is suggestion of restriction. Evidence for the proportional decline on the FEV1 and FVC. Lung volume measurements and diffusion capacity may be of help. Clinical correlation is advised.
Intraprocedural DAVID, 05/18/2024:
CONCLUSIONS
Normal size ventricle with global hypokinesis. LVEF is 30-35%. The anterior
and anterior apical bain are most severely affected.
Normal right ventricular systolic function.
Grossly normal aortic valve.
Trace to mild mitral regurgitation.
Grossly normal tricuspid valve.
Grade III atheromatous disease of the arch and descending aorta.
Normal left atrial appendage.
POST OPERATIVE FINDINGS
S/P CABG x 3: MCCORMICK-LAD; SVG OM; SVG-PDA.
The left atrial appendage is no longer visible with color flow Doppler
confirming the absence of flow. The left ventricular function is mildly
improved to 35-40% with the aid of dobutamine support. Otherwise unchanged
exam.
CXR, 05/21/2024:
IMPRESSION:
Discontinued chest tubes and mediastinal tube without pneumothorax. Stable cardiomediastinal margins. Increased opacity in retrocardiac left lower lobe; possible considerations include increasing pleural effusion, atelectasis, or pneumonia.
Physical Exam
Vital Signs/Labs
Vital Signs
Temp Pulse Resp BP Pulse Ox
97.5 F 92 16 113/71 94
05/22/24 11:51 05/22/24 11:51 05/22/24 11:51 05/22/24 11:51 05/22/24 11:51
05/21/24 05/22/24 05/23/24
06:59 06:59 06:59
Actual Weight 125.7 kg 122.1 kg
05/22/24 04:28
05/22/24 04:28
PT 16.3 Sec (11.4-14.6) H 05/18/24 14:56
INR 1.25 05/18/24 14:56
APTT 31.4 Sec (23.4-35.0) 05/18/24 14:56
Magnesium 2.3 mg/dl (1.6-2.3) 05/22/24 04:28
Physical Exam
Constitutional: No acute distress
Cardiovascular: Rhythm/rate is irregular
Respiratory: Respiratory effort normal
GI: Soft, Distention absent and Non tender
Neuro/Psych: Alert, Oriented and AO x 3
Data Reviewed
-
Date of Service: May 22, 2024
Medical Decision Making: Reviewed Test Results
EKG: Report Reviewed by me
X-Ray/CT/US/MRI/NUC/PET: Report Reviewed by me
Labs: Labs Reviewed by me
[2024-05-22] MEDS: NOVOLOG FLEXPEN-HIGH RESISTANCE 1 UNITS SC (15:44)
[2024-05-22 15:48] LABS: Glucose - Point of Care 142 mg/dl (70-99)
--- NOTE | 2024-05-22 15:50 | PTCARENOTE ---
Pt reassessed. Afib on tele with rates in the 90s-100s. BP 90/66. POX 95% on RA. Surgical sites stable. Tolerating sitting in the chair. Voiding jey urine in the urinal.
--- NOTE | 2024-05-22 17:15 | PTCARENOTE ---
New PIV placed. Hand PIV d/c, Right IJ cordis d/c per orders, pt tolerated.
[2024-05-22] MEDS: LIPITOR 40 MG PO (18:03)
[2024-05-22 20:21] LABS: Glucose - Point of Care 159 mg/dl (70-99)
--- NOTE | 2024-05-22 20:45 | PTCARENOTE ---
received pt from previous rn. pt AAOx4, VSS, A-fib per tele monitor HR 90s, +pulses, +1 generalized anasarca, v-wire insulated, pox 94% on RA, lung sounds diminished, productive cough, +bs, voids appropriately in urinal, all surgical sites intact,
PIV x1 intact, plan of care discussed questions encouraged.
[2024-05-22] MEDS: MELATONIN 5 MG PO (21:09)
--- NOTE | 2024-05-22 23:22 | PTCARENOTE ---
VSS, A-fib per tele monitor HR 90s, assessment remains unchanged
[2024-05-23] VITALS (14 sets, daily range): BP systolic 91–134; BP diastolic 54–117; PULSE 82; O2SAT 94; BMI 41.6
--- NOTE | 2024-05-23 03:55 | W.PN.CT ---
Today's Communication / Plan
-
Plan:
-No major issues overnight. Hemodynamically and neurologically intact
-Remains in postop a-fib, mostly rate controlled
-Tolerating increased Toprol XL to 50mg BID
-Received 1u prbc on 05/21/24, h/h stable @
-Postop thrombocytopenia has resolved, 89->83->107->150K
-Will initiate DOAC upon d/c home, was a left atrial appendage clip. Will stop Plavix
-Hyponatremia has resolved, 134-> 136 today
-Cont. diuresis, 24hr u/o 4265
-Acute postop CARLOTTA on CKD has resolved, 1.6today, peaked @ 2.9, (lives around 1.4-2.0)
-On CPAP during sleep
-Maintain temporary PW wires (will cut before d/c home)
-OOB into chair/Ambulate
-Home today
Assessment / Plan
-
Assessment:
- mv-CAD - s/p CABG x 3 (AUGUSTO to LAD, GSV to D2, GSV to OM, Endarterectomy to SVG-D2); ELAA w/ 45mm AtriClip by Dr. Eubanks on 05/18/24, pod #5
- Post-DAVID: LVEF 35%, unchanged MR
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
- HTN/HLD
- CKD III (baseline Cr 1.6-2)
- Hx RBBB w/ PACs & PVCs, SNVT
- Class 3 obesity (BMI 41)
- Suspected VERONICA
- Mild MR
- DM II (HgA1c 6.8)
- s/p prostate bx with urolift 2018
- hx TIA 2014
- Former alcoholic
- ED
- GI bleed 2019
- OA, s/p b/l TKA 2017
- L RTC repair
- Nephrolithiasis with multiple lithotripsies
- Acute postop blood loss anemia
- Acute postop coagulopathy - s/p 1 unit platelet
- Acute postop thrombocytopenia
- Acute postop atelectasis
- Acute postop hypovolemia with subsequent hypervolemia
- Acute postop hyponatremia, 131
- CARLOTTA in setting of CKD
- Acute postop respiratory acidosis - started on bipap at [facility]
- Acute postop pulmonary insufficiency
- Acute postop a-fib- tx with Amio boluses and drip
Discussed patient care with: Cardiology, Nursing, Respiratory Therapy, Pharmacy and Care Team
Subjective
Procedure
- s/p CABG x 3 (AUGUSTO to LAD, GSV to D2, GSV to OM); ELAA w/ 45mm AtriClip by Dr. Eubanks on 05/18/24
-
Date of Service: May 23, 2024
Pt c/o incisional pain, otherwise feels well. Ambulating halls without difficulty
Objective Data
-
PT 16.3 Sec (11.4-14.6) H 05/18/24 14:56
INR 1.25 05/18/24 14:56
APTT 31.4 Sec (23.4-35.0) 05/18/24 14:56
Vital Signs
Vital Signs
Temp Pulse Resp BP Pulse Ox
98.3 F 75 18 126/73 99
05/23/24 03:35 05/23/24 03:35 05/23/24 03:35 05/23/24 03:35 05/23/24 03:35
CT Intake/Output/Weight
05/22/24 05/22/24 05/23/24
06:59 18:59 06:59
Intake Total 470.3 / 1344.9 340 / 440 100 / 440
Output Total 2115 / 4480 1965 / 2665 700 / 2665
Balance -1644.7 / -3135.1 -1625 / -2225 -600 / -2225
SaO2: 99 (2L)
Physical Exam
-
General: Awake, Oriented and AOx3
Cardiovascular: Irregular rate & rhythm (rate controlled a-fib), No Murmurs and No Gallop
Respiratory: Decreased Breath Sounds (at bases, otherwise clear)
Sternum: Stable
Incision: Clean, Dry, Intact and Dressing Intact
Extremities: No Edema
Data Reviewed
-
Lab Results: Results Reviewed
Medications: Active Meds Reviewed
Chest X-Ray: Report Reviewed and Image Reviewed
ECG: Report Reviewed and Image Reviewed
[2024-05-23 04:53] LABS: Hemoglobin 10.4 g/dL (13.0-18.0); Mean Corp Hgb Conc. 32.5 g/dL (33.0-37.0); Mean Corpuscular Hgb 30.9 pg (27.0-31.0); Mean Platelet Volume 10.8 fL (7.4-10.4); Platelet Count 150 10^3/uL (130-400); Red Blood Cell Count 3.37 10^6/uL (4.70-6.10); Red Cell Dist. Width 14.6 % (11.5-14.5); White Blood Cell Count 11.9 10^3/uL (4.8-10.8)
--- NOTE | 2024-05-23 04:54 | PTCARENOTE ---
routine labs obtained, VSS, A-fib per monitor, assessment remains unchanged
[2024-05-23 05:19] LABS: Blood Urea Nitrogen 61 mg/dl (9-20); Calcium 8.4 mg/dl (8.4-10.2); Carbon Dioxide 32 mmol/L (22-30); Chloride 100 mmol/L (98-107); Estimated Creatinine Clearance 53 ml/min; Glucose 120 mg/dl (70-99); Magnesium 2.5 mg/dl (1.6-2.3); Potassium 3.8 mmol/L (3.5-5.1); Sodium 139 mmol/L (135-145); eGFR 45.78
[2024-05-23] MEDS: KCL 40 MEQ PO (05:49)
[2024-05-23] MEDS: TYLENOL 1000 MG PO ×3 (05:49→20:58)
[2024-05-23] MEDS: DIAMOX 250 MG PO (05:49)
--- NOTE | 2024-05-23 07:56 | PN.DE.MGMTRT ---
Insulin Management
- -
05/23/2024: Diabetes Management Consult
73 year old male admitted 05/18/24 with significant multivessel CAD and underwent CABG x3,. 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
Morbid obesity and T2DM. Was taking Jardiance 25 mg daily RN PARALEGAL. A1C 6.8%, Cr 1.6 today, peaked @ 2.9, (baseline 1.4-2.0) PCP manages his diabetes, has a working meter at home. Was taking Ozempic but stopped it in February due to cost. States he has a
better drug plan now and will be able to afford it and resume it upon discharge.
Pt awake, alert, oriented, sitting up in chair, offers no complaints, able to discuss diabetes mgt.
Pt was transitioned off insulin drip to SQ insulin- Lantus 10 units BID and high corrective with meals over the weekend.
Glucose stable and in range, FBG 120 this AM. 05/22 premeal 142 to 206 and 159 @ HS.
Will continue Metformin 1000 mg BID. Will stop Lantus at discharge, given current A1C of 6.8.
Discussed with pt and CV team, Pt will resume Jardiance 25mg daily and Ozempic in addition to Metformin upon discharge.
States He has a working glucose monitor with enough supplies at home.
Diabetes History
- -
Type of Diabetes: 2
Pre-Admission Diabetes Regimen
05/23/24
04:43
Creatinine 1.6 H
Lab Results
Hemoglobin A1c 6.8 % (4.0-5.6) H 04/26/24 09:00
Insulin Pump Settings
IP Diabetes Regimen
05/22/24 05/22/24 05/22/24
08:14 11:36 15:42
Glucose
POC Glucose 166 H 206 H 142 H
05/22/24 05/23/24
20:19 04:43
Glucose 120 H
POC Glucose 159 H
Patient Education
--- NOTE | 2024-05-23 08:15 | PTCARENOTE ---
Resumed care of patient. Pt assessed while he was sitting in the chair. A&Ox4. TAVERA with equal strength. Ambulating in the taylor with rolling walker. Afib on tele with rates in the 70s-80s. BP 125/84. Bilateral radial pulses palpable, bilateral DP
pulses weakly palpable. Generalized +1 edema. Epicardial v-wire insulated. POX 92%. Lungs diminished in the bases. Productive cough with contreras sputum. IS encouraged-1250mL achieved. Abdomen round, obese, nontender. +BS +gas, MOM given for
constipation. Pt voiding jey urine in the graduated cylinder. Sternal incision covered with Aquacel-CDI. Old chest tube sites approximated with sutures. Right groin and right SVG harvest approximated with skin glue, WILEY. Right hand 22g PIV intact.
See MAR for medication administration. See worklist for complete nursing assessment. Plan of care reviewed and patient in agreement.
[2024-05-23] MEDS: NSS IV (08:22)
[2024-05-23] MEDS: LANTUS 0.1 UNITS SC ×2 (08:31→21:05)
[2024-05-23] MEDS: TOPROL XL 50 MG PO ×2 (08:31→21:59)
[2024-05-23] MEDS: PLAVIX 75 MG PO (08:31)
[2024-05-23] MEDS: LIDOCAINE 4% PATCH TOPICAL (08:31)
[2024-05-23] MEDS: PACERONE 400 MG PO ×3 (08:31→20:58)
[2024-05-23] MEDS: SENOKOT-S 1 TABLET PO ×2 (08:31→20:57)
[2024-05-23] MEDS: MUCINEX 600 MG PO ×2 (08:31→20:58)
[2024-05-23] MEDS: LOW STRENGTH ASPIRIN 81 MG PO (08:31)
[2024-05-23] MEDS: PROTONIX 40 MG PO (08:31)
[2024-05-23] MEDS: MILK OF MAGNESIA 30 ML PO (08:31)
[2024-05-23] MEDS: NOVOLOG FLEXPEN-HIGH RESISTANCE 1 UNITS SC ×2 (08:34→18:31)
[2024-05-23 08:39] LABS: Glucose - Point of Care 118 mg/dl (70-99)
--- NOTE | 2024-05-23 10:17 | W.PN.CD ---
Addendum entered and electronically signed by Mayo Palumbo MD 05/23/24 12:17:
73 yo male with PMH of CAD, ICM EF 30-35%, A fib becoming persistent, CKD3b. Admitted for CABG. Sitting in chair, no cardiac complaints. Exam with irregular rhythm, no murmurs, trace LE edema. Cr 1.6.
Discussed with team. Plan will be ASA/eliquis.
GDMT now includes Toprol XL, entresto, farxiga. Likely assess for MRA as outpatient.
Original Note:
Today's Communication / Plan
-
Apixaban 5 mg twice daily prior to discharge
Impression / Plan
-
Impression/Plan: 73M with hypertension, obesity, CKD, NSVT, PVC's, atrial ectopy, RBBB. OP monitor revealed AIVR as predominant rhythm, leading to an echo which revealed cardiomyopathy, LVEF 35%. Subsequent cath showed severe multivessel coronary
artery disease. He is admitted for elective CABG.
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
#S/P CABG x 3 (AUGUSTO to LAD, GSV to D2 requiring endarterectomy, GSV to OM) with Dr. Eubanks, 05/18/23.
-Currently in atrial fibrillation
-Intra-op DAVID EF 30-35%.
-On atorvastatin 40 mg, continue
#ICM/HFrEF
-Patient is in acute HFrEF due to obligatory volume from surgery.
-LVEF 30-35% on DAVID.
-Renal function appears to be back at baseline
-Currently on metoprolol succinate, preoperatively he was on Jardiance 25mg and losartan 100mg
#Acute on CKD3b
-CARLOTTA post op, renal function appears to be at baseline
#Post operative atrial fibrillation
-Currently in rate controlled atrial fibrillation
-Rate/rhythm control with amiodarone.
-CHADS2-Vasc = 5 (CHF, HTN, Age x1, DM, Vascular Disease).
-S/P LAAE (#45 AtriClip) with Dr. Eubanks, 05/18/2024.
-Therapeutic anticoagulation when safe from a CT surgery standpoint, apixaban 5 mg twice daily, clopidogrel can be stopped when it is initiated
Anemia, stable
#Hx of AIVR, RBBB:
-Chronic.
-Monitor telemetry.
#DM, chronic, HgbA1c 6.8%, per primary service
#Remote GI bleed
#Alcoholism in recovery
Subjective/Interval History:
Feeling well without chest pain and shortness of breath.
DATA:
Spirometry, 04/26/2024:
In Summary:
There is no evidence for airflow obstruction. There is suggestion of restriction.
Evidence for the proportional decline on the FEV1 and FVC.
Lung volume measurements and diffusion capacity may be of help. Clinical correlation is advised.
Intraprocedural DAVID, 05/18/2024:
CONCLUSIONS
Normal size ventricle with global hypokinesis. LVEF is 30-35%. The anterior
and anterior apical bain are most severely affected.
Normal right ventricular systolic function.
Grossly normal aortic valve.
Trace to mild mitral regurgitation.
Grossly normal tricuspid valve.
Grade III atheromatous disease of the arch and descending aorta.
Normal left atrial appendage.
POST OPERATIVE FINDINGS
S/P CABG x 3: MCCORMICK-LAD; SVG OM; SVG-PDA.
The left atrial appendage is no longer visible with color flow Doppler
confirming the absence of flow. The left ventricular function is mildly
improved to 35-40% with the aid of dobutamine support. Otherwise unchanged
exam.
CXR, 05/21/2024:
IMPRESSION:
Discontinued chest tubes and mediastinal tube without pneumothorax. Stable cardiomediastinal margins.
Increased opacity in retrocardiac left lower lobe; possible considerations include increasing pleural effusion, atelectasis, or pneumonia.
Physical Exam
Vital Signs/Labs
Vital Signs
Temp Pulse Resp BP Pulse Ox
97.3 F 85 16 125/84 92
05/23/24 08:00 05/23/24 08:17 05/23/24 08:00 05/23/24 08:17 05/23/24 08:15
05/22/24 05/23/24 05/24/24
06:59 06:59 06:59
Actual Weight 122.1 kg 120.5 kg
05/23/24 04:43
05/23/24 04:43
PT 16.3 Sec (11.4-14.6) H 05/18/24 14:56
INR 1.25 05/18/24 14:56
APTT 31.4 Sec (23.4-35.0) 05/18/24 14:56
Magnesium 2.5 mg/dl (1.6-2.3) H 05/23/24 04:43
Physical Exam
Constitutional: No acute distress and Comfortable
EENT: Anicteric and Moist mucous membranes
Cardiovascular: Pedal edema is absent, Rhythm/rate is irregular and S1S2 is normal
Respiratory: Respiratory effort normal and Lungs clear to auscul.
GI: Soft, Distention absent, Flat, Non tender and Normal bowel sounds
Neuro/Psych: AO x 3
Other: Skin (Warm and dry)
Data Reviewed
-
Date of Service: May 23, 2024
[2024-05-23] MEDS: FARXIGA 10 MG PO (11:12)
--- NOTE | 2024-05-23 12:08 | CM ---
Chart reviewed. Patient is independent of ADLS, lives with his in a 2 ST, 1 GIORGI, 0 DME. PT evaluation recommending Acute Rehab. Patient is agreeable. Referrals sent to [facility]. Plan is for the patient to go to Acute
Rehab. CM to follow
[2024-05-23] MEDS: ENTRESTO 24 MG/26 MG 1 TAB PO (12:09)
--- NOTE | 2024-05-23 12:18 | CM ---
Addendum entered by Suzanna Lincoln RN 05/23/24 14:04:
Patient is agreeable
Original Note:
Pricing on Eliquis is $145 for a 30 day supply through the patient's [employer] prescription plan. I will place a free 30 day coupon in the patient's red discharge folder.
--- NOTE | 2024-05-23 12:20 | PTCARENOTE ---
Pt reassessed. Afib on tele with rates in the 90s. BP 106/66. POX 95% on RA. Surgical sites stable. Pt resting in chair comfortably. No acute changes.
[2024-05-23 14:41] LABS: Glucose - Point of Care 166 mg/dl (70-99)
[2024-05-23] MEDS: NOVOLOG FLEXPEN-HIGH RESISTANCE 300 UNITS SC (14:41)
--- NOTE | 2024-05-23 16:00 | PTCARENOTE ---
Pt reassessed. Afib with rates in the 80s-90s. BP 96/54. POX 93% on RA. Surgical sites stable. Ambulating in the halls with rolling walker. Assisted back to bed per pt request.
[2024-05-23] MEDS: LIPITOR 40 MG PO (18:31)
[2024-05-23 18:33] LABS: Glucose - Point of Care 118 mg/dl (70-99)
--- NOTE | 2024-05-23 20:00 | PTCARENOTE ---
assumed care of pt from previous RN. pt A&Ox4, resting in chair at time of assessment. a fib on tele-monitor. temp epicardial v-wires insulated. POX 96% on RA. abd firm, non-tender, round, obese. voiding clear, jey colored urine. all surgical
sites stable, CDI. PIV intact. see worklist for complete nursing assessment, interventions, VS, and I&Os.
[2024-05-23 21:07] LABS: Glucose - Point of Care 129 mg/dl (70-99)
[2024-05-23] MEDS: ENTRESTO 24 MG/26 MG PO (21:59)
[2024-05-23] MEDS: CALCIUM GLUCONATE 100 IV (22:04)
--- NOTE | 2024-05-24 | PTCARENOTE ---
assessment remains unchanged. VSS.
--- NOTE | 2024-05-24 03:42 | W.PN.CT ---
Today's Communication / Plan
-
Plan:
-No major issues overnight. Hemodynamically and neurologically intact
-Remains in postop a-fib, rate controlled (80-90's)
-Tolerating increased Toprol XL to 50mg BID. Held Entresto last night d/t soft BP (SBP 90's)
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
-Received 1u prbc on 05/21/24, h/h stable @ 10./31.1
-Postop thrombocytopenia has resolved, 89->83->107->150K->377
-Will initiate DOAC upon d/c home, was a left atrial appendage clip. Will stop Plavix
-Hyponatremia has resolved, 134-> 136 today
-Cont. diuresis, 24hr u/o 4265
-Acute postop CARLOTTA on CKD has resolved, 1.7 today, peaked @ 2.9, (lives around 1.4-2.0)
-Maintain temporary PW wires (will cut before d/c home)
-OOB into chair/Ambulate/PT/OT following
-Awaiting acceptance @ acute rehab ([facility])
Assessment / Plan
-
Assessment:
- mv-CAD - s/p CABG x 3 (AUGUSTO to LAD, GSV to D2, GSV to OM, Endarterectomy to SVG-D2); ELAA w/ 45mm AtriClip by Dr. Eubanks on 05/18/24, pod #6
- Post-DAVID: LVEF 35%, unchanged MR
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
- HTN/HLD
- CKD III (baseline Cr 1.6-2)
- Hx RBBB w/ PACs & PVCs, SNVT
- Class 3 obesity (BMI 41)
- Suspected VERONICA
- Mild MR
- DM II (HgA1c 6.8)
- s/p prostate bx with urolift 2018
- hx TIA 2014
- Former alcoholic
- ED
- GI bleed 2019
- OA, s/p b/l TKA 2017
- L RTC repair
- Nephrolithiasis with multiple lithotripsies
- Acute postop blood loss anemia
- Acute postop coagulopathy - s/p 1 unit platelet
- Acute postop thrombocytopenia
- Acute postop atelectasis
- Acute postop hypovolemia with subsequent hypervolemia
- Acute postop hyponatremia, 131
- CARLOTTA in setting of CKD
- Acute postop respiratory acidosis - started on bipap at [facility]
- Acute postop pulmonary insufficiency
- Acute postop a-fib- tx with Amio boluses and drip
Discussed patient care with: Cardiology, Nursing, Respiratory Therapy, Pharmacy and Care Team
Subjective
Procedure
- s/p CABG x 3 (AUGUSTO to LAD, GSV to D2, GSV to OM); ELAA w/ 45mm AtriClip by Dr. Eubanks on 05/18/24
-
Date of Service: May 24, 2024
Pt c/o mild incisional pain, otherwise feels well
Objective Data
-
PT 16.3 Sec (11.4-14.6) H 05/18/24 14:56
INR 1.25 05/18/24 14:56
APTT 31.4 Sec (23.4-35.0) 05/18/24 14:56
Vital Signs
Vital Signs
Temp Pulse Resp BP Pulse Ox
98.2 F 77 14 102/63 92
05/24/24 00:00 05/24/24 00:00 05/24/24 00:00 05/23/24 23:03 05/24/24 00:00
CT Intake/Output/Weight
05/23/24 05/23/24 05/24/24
06:59 18:59 06:59
Intake Total 100 / 440 240 / 240
Output Total 975 / 2940 550 / 1300 750 / 1300
Balance -875 / -2500 -310 / -1060 -750 / -1060
SaO2: 92 (RA)
Physical Exam
-
General: Awake, Oriented and AOx3
Cardiovascular: Regular rate & rhythm, No Murmurs, No Rub and No Gallop
Respiratory: Decreased Breath Sounds (at bases, otherwise clear)
Sternum: Stable
Incision: Clean, Dry, Intact and Dressing Intact
Extremities: Other (+trace edema)
Data Reviewed
-
Lab Results: Results Reviewed
Medications: Active Meds Reviewed
Chest X-Ray: Report Reviewed and Image Reviewed
ECG: Report Reviewed and Image Reviewed
[2024-05-24 04:12] VITALS: BP 110/69
--- NOTE | 2024-05-24 04:15 | PTCARENOTE ---
no acute changes. VSS. AM labs collected and sent.
[2024-05-24 04:38] LABS: Hematocrit 31.3 % (39.0-52.0); Hemoglobin 10.1 g/dL (13.0-18.0); Mean Corp Hgb Conc. 32.3 g/dL (33.0-37.0); Mean Corpuscular Hgb 30.8 pg (27.0-31.0); Mean Corpuscular Volume 95.4 fL (80.0-94.0); Mean Platelet Volume 10.6 fL (7.4-10.4); Platelet Count 181 10^3/uL (130-400); Red Blood Cell Count 3.28 10^6/uL (4.70-6.10); Red Cell Dist. Width 14.4 % (11.5-14.5); White Blood Cell Count 12.5 10^3/uL (4.8-10.8)
[2024-05-24 05:01] LABS: Blood Urea Nitrogen 58 mg/dl (9-20); Calcium 8.6 mg/dl (8.4-10.2); Carbon Dioxide 28 mmol/L (22-30); Chloride 100 mmol/L (98-107); Estimated Creatinine Clearance 50 ml/min; Glucose 125 mg/dl (70-99); Magnesium 2.6 mg/dl (1.6-2.3); Sodium 137 mmol/L (135-145); eGFR 42.57
[2024-05-24 06:00] VITALS: BMI 41.4
[2024-05-24] MEDS: TYLENOL 1000 MG PO (06:26)
[2024-05-24 07:25] VITALS: BP 90/67
[2024-05-24 07:26] VITALS: BP 100/69
[2024-05-24 07:27] LABS: Glucose - Point of Care 100 mg/dl (70-99)
--- NOTE | 2024-05-24 08:31 | PN.DE.MGMTRT ---
Insulin Management
- -
05/24/2024: Diabetes Management Consult Follow up
Patient admitted 05/18/24 for CABG x 3 . 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 A1C 6.8%, Cr 1.6 today, peaked @ 2.9, (baseline 1.4-2.0) PCP manages his diabetes, has a working meter at home. Was taking Ozempic but stopped it in February due to cost. States he has a better drug plan now and
will be able to afford it and resume it upon discharge.
Pt awake, alert, oriented, sitting up in chair, offers no complaints, able to discuss diabetes mgt.
Pt was transitioned off insulin drip to SQ insulin- Lantus 10 units BID and high corrective with meals over the weekend.
Glucose stable and in range, FBG 100 this AM. 05/23 premeal 118 to 166 and 129 @ HS.
Will continue Metformin 1000 mg BID. Patient did receive AM lantus dose, will stop pm Lantus today, given current A1C of 6.8.
Discussed with pt and CV team, Pt will resume Jardiance 25mg daily and Ozempic in addition to Metformin upon discharge.
States He has a working glucose monitor with enough supplies at home.
Diabetes History
- -
Type of Diabetes: 2
Pre-Admission Diabetes Regimen
05/24/24
04:20
Creatinine 1.7 H
Lab Results
Hemoglobin A1c 6.8 % (4.0-5.6) H 04/26/24 09:00
Insulin Pump Settings
IP Diabetes Regimen
05/23/24 05/23/24 05/23/24
08:33 14:39 18:30
Glucose
POC Glucose 118 H 166 H 118 H
01/05/24/24 05/24/24
21:04 04:20 07:23
Glucose 125 H
POC Glucose 129 H 100 H
Meal type: Dinner
Amount consumed: 100%
Patient Education
[2024-05-24] MEDS: PACERONE 400 MG PO (08:36)
[2024-05-24] MEDS: LANTUS 0.1 UNITS SC (08:36)
[2024-05-24] MEDS: LIDOCAINE 4% PATCH 1 PATCH TOPICAL (08:36)
[2024-05-24] MEDS: LASIX 40 MG PO (08:37)
[2024-05-24] MEDS: ELIQUIS 5 MG PO (08:37)
[2024-05-24] MEDS: FARXIGA 10 MG PO (08:37)
[2024-05-24] MEDS: PROTONIX 40 MG PO (08:37)
[2024-05-24] MEDS: SENOKOT-S 1 TABLET PO (08:37)
[2024-05-24] MEDS: MUCINEX 600 MG PO (08:37)
[2024-05-24] MEDS: TOPROL XL 50 MG PO (08:37)
[2024-05-24] MEDS: LOW STRENGTH ASPIRIN 81 MG PO (08:37)
[2024-05-24] MEDS: NSS IV (08:38)
[2024-05-24] MEDS: ENTRESTO 24 MG/26 MG 1 TAB PO (08:38)
[2024-05-24] MEDS: NOVOLOG FLEXPEN-HIGH RESISTANCE 1 UNITS SC ×2 (08:47→11:43)
--- NOTE | 2024-05-24 09:00 | PTCARENOTE ---
Resumed care of patient. Pt assessed while he was sitting in the chair. Pt alert and oriented x4. Denies pain and nausea and SOB. TAVERA with equal strength throughout. Ambulating 100' in the taylor with rolling walker. Afib on tele with rates 80s-90s.
BP 100/69. Bilateral radial pulses palpable. Bilateral DP pulses weakly palpable. Generalized +1 edema. Epicardial v-wire insulated. POX 97% on RA. Lungs diminished in the bases. IS encouraged-1500ml achieved. No cough noted. Abdomen round, obese,
nontender. +BS. BM yesterday. Pt voiding clear yellow urine. Sternal incision covered with Aquacel-CDI. Old chest tube sites approximated with sutures. Right groin puncture approximated, right SVG harvest approximated with skin glue, ENGAGEMENT LIAISON. Right hand
22g PIV intact. See MAR for medication administration. See worklist for complete nursing assessment. Plan of care reviewed and patient in agreement.
[2024-05-24 10:15] VITALS: BP 117/94
[2024-05-24 10:34] VITALS: BP 117/94; PULSE 89; O2SAT 97
[2024-05-24 11:05] VITALS: BP 112/62
--- NOTE | 2024-05-24 11:15 | W.PN.CD ---
Today's Communication / Plan
-
Agree with moving to Eliquis/ASA and off Plavix near discharge
Rate control AFib
Will advance GDMT as improves in outpatient setting
Once on max GDMT for several months will check echo and see if ICD discussion will be needed
Impression / Plan
-
Background: 73M with hypertension, obesity, CKD, NSVT, PVC's, atrial ectopy, RBBB. OP monitor revealed AIVR as predominant rhythm, leading to an echo which revealed cardiomyopathy, LVEF 35%. Subsequent cath showed severe multivessel coronary artery
disease. He is admitted for elective CABG.
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
#S/P CABG x 3 (AUGUSTO to LAD, GSV to D2 requiring endarterectomy, GSV to OM) with Dr. Eubanks, 05/18/23.
-Intra-op DAVID EF 30-35%.
-On atorvastatin 40 mg, continue
#ICM/HFrEF
-Patient is in acute HFrEF due to obligatory volume from surgery.
-LVEF 30-35% on DAVID. Post-op DAVID in OR LVEF 35-40% on dobutamine
-On some GDMT, will advance as he progresses
#Acute CARLOTTA on CKD3b => improved, Cr now 1.7, essentially at baseline
#Post operative atrial fibrillation
-Currently in rate controlled atrial fibrillation
-Rate/rhythm control with amiodarone.
-CHADS2-Vasc = 5 (CHF, HTN, Age x1, DM, Vascular Disease).
-S/P LAAE (#45 AtriClip) with Dr. Eubanks, 05/18/2024.
-Therapeutic anticoagulation when safe from a CT surgery standpoint, apixaban 5 mg twice daily, clopidogrel can be stopped when it is initiated
# Anemia, stable
#Hx of AIVR, RBBB:
-Chronic.
-Monitor telemetry.
#DM, chronic, HgbA1c 6.8%, per primary service
#Remote GI bleed
#Alcoholism in recovery
Subjective/Interval History:
Feeling better
DATA:
Spirometry, 04/26/2024:
In Summary:
There is no evidence for airflow obstruction. There is suggestion of restriction.
Evidence for the proportional decline on the FEV1 and FVC.
Lung volume measurements and diffusion capacity may be of help. Clinical correlation is advised.
Intraprocedural DAVID, 05/18/2024:
CONCLUSIONS
Normal size ventricle with global hypokinesis. LVEF is 30-35%. The anterior
and anterior apical bain are most severely affected.
Normal right ventricular systolic function.
Grossly normal aortic valve.
Trace to mild mitral regurgitation.
Grossly normal tricuspid valve.
Grade III atheromatous disease of the arch and descending aorta.
Normal left atrial appendage.
POST OPERATIVE FINDINGS
S/P CABG x 3: MCCORMICK-LAD; SVG OM; SVG-PDA.
The left atrial appendage is no longer visible with color flow Doppler
confirming the absence of flow. The left ventricular function is mildly
improved to 35-40% with the aid of dobutamine support. Otherwise unchanged
exam.
CXR, 05/21/2024:
IMPRESSION:
Discontinued chest tubes and mediastinal tube without pneumothorax. Stable cardiomediastinal margins.
Increased opacity in retrocardiac left lower lobe; possible considerations include increasing pleural effusion, atelectasis, or pneumonia.
Physical Exam
Vital Signs/Labs
Vital Signs
Temp Pulse Resp BP Pulse Ox
97.7 F 93 16 117/94 97
05/24/24 08:00 05/24/24 10:15 05/24/24 08:00 05/24/24 10:15 05/24/24 09:00
05/23/24 05/24/24 05/25/24
06:59 06:59 06:59
Actual Weight 120.5 kg 119.8 kg
05/24/24 04:20
05/24/24 04:20
PT 16.3 Sec (11.4-14.6) H 05/18/24 14:56
INR 1.25 05/18/24 14:56
APTT 31.4 Sec (23.4-35.0) 05/18/24 14:56
Magnesium 2.6 mg/dl (1.6-2.3) H 05/24/24 04:20
Physical Exam
Constitutional: No acute distress
Cardiovascular: Rhythm/rate is irregular and Rub absent
Respiratory: Respiratory effort normal and Lungs clear to auscul. (decrease at bases)
GI: Soft and Distention absent
Neuro/Psych: AO x 3
Data Reviewed
-
Date of Service: May 24, 2024
[2024-05-24 11:23] LABS: Glucose - Point of Care 92 mg/dl (70-99)
--- NOTE | 2024-05-24 12:05 | CM ---
Chart reviewed. Patient is independent of ADLS, lives with his in a 2 STH, 1 GIORGI, 0 DME. Patient evaluated by PT today, doing much better, recommending home with RW. Script given to PT. Plan is for the patient to return home with CT
Transitional RN. CM to follow
--- NOTE | 2024-05-24 12:13 | W.DCSUMMARY ---
Discharge Summary
Discharge Data
Date of Admission: 05/18/24
Date of Discharge: 05/24/24
-
Pending Results: No
Hospital Course
Primary care physician: Isaac Moura
Outpatient microwave radio technician: Kory Woods
Inpatient consultants: [facility] Cardiology, diabetes nurse practitioner
Procedures:
1. CABG
Primary Diagnosis:
1. Triple-vessel coronary disease
Secondary Diagnoses:
1. Ischemic cardiomyopathy (EF 35%)
2. Hypertension
3. Hyperlipidemia
4. Nonsustained ventricular tachycardia
5. Boi-jeyxrpt-rjhaltovp diabetes (A1c 6.8)
6. Acute Post-op CARLOTTA on Chronic kidney disease stage III
7. Prostate cancer status post prostate biopsy and UroLift in 2018
8. Recovering alcoholic
9. TIA in 2014
10. Osteoarthritis status post bilateral total knee arthroscopy in 2018
11. Left rotator cuff tear and surgical repair
12. Nephrolithiasis status post multiple lithotripsy
13. Class III obesity (BMI 41.4)
14. Acute postop blood loss anemia
15. Acute postop thromcocytopenia and coagulopathy - s/p 1 unit platelet
16. Acute postop hyponatremia
17. Acute postop respiratory acidosis requiring BiPAP
18. Acute postop pulmonary insufficiency
19. Acute postop a-fib
HPI: 73-year-old male was electively admitted on 05/18/2024 for CABG due to triple-vessel coronary disease
Hospital course: Patient was taken to the operating room for CABG x 3 (AUGUSTO to LAD, GSV to D2, GSV to OM), endarterectomy to GSV to D2 secondary to plaque, ELAA #45mm AtriClip with Dr. Lico Eubanks. Patient received 1 platelet intraoperatively
for coagulopathy. He returned to CVICU on Levophed @ 2, dobutamine @ 3, Precedex, and insulin. Initial cardiac index was 1.64 and dobutamine was increased to 5. Patient was extubated 1930 the evening of surgery. Patient was weaned off Levophed
and morning of postop day #1. He was maintained on dobutamine at 3. Patient developed episode of atrial tachycardia in the 140s getting out of bed, he received amiodarone bolus and infusion and converted to sinus rhythm. Creatinine peaked at 2.9
and patient was diuresed with IV Lasix. Patient was hypotensive during the night into postoperative day #2 and required levophed. He converted to atrial fibrillation and a repeat amiodarone bolus was given. Dobutamine was weaned to 1. Patient
required BiPAP overnight. Postoperative day #3, patient was weaned off dobutamine. He was aggressively diuresed. Patient received 1 unit of packed red blood cells for symptomatic anemia (hemoglobin 8.8). He transitioned off insulin to Lantus
twice daily and moderate dose sliding scale. Postoperative day #5: Patient was started on low-dose Entresto and continue diuresis. He ambulated with physical therapy who initially recommended rehab. He was evaluated by physiatry and with
documented improved ambulation scores, patient was deemed stable for home discharge.
Home medication changes:
New:
Eliquis 5mg BID and amiodarone 200 mg twice daily for atrial fibrillation
Lasix 40 mg daily for fluid retention
Protonix as GI prophylaxis while on Eliquis
Entresto 24-26 mg twice daily for ischemic cardiomyopathy
Stop:
Losartan as on Entresto
Discharge Plan
-
Patient Disposition: Home (Routine Discharge)
Discharge Diagnosis/Procedures: CABG x 3 w/endarterectomy/ANNA clip
Condition: Good
Diet: Low Fat, Low Sodium and Diabetic, Carb Controlled
Activity: No strenuous activity
Driving Restrictions: Not until seen by your Dr
Bathing Restrictions: OK to Shower
Blood Work: BMP in 1 week
Other Services: Cardiac Rehab
Specialty Instructions: Weigh Daily- Call MD for wt gain/loss 3 lbs overnight/5 lbs in 1 week
Referrals:
CT Transitional Care Nurse [Outside] - in one to two days
(
The Cardiothoracic Transitional Care Nurse will call you to set up a visit in 1-2 days.)
[facility]. Cardiac Rehab [Outside] - 06/30/24 11:00 am
(Cardiac Rehab Orientation appointment is on June @ 11:00am.
The Cardiac Rehab gym is located on the first floor of the [facility].)
Linda Blakely CRNP [Specified Professional Personl] - 06/28/24 11:20 am
Home Mcleod MD [Active] - in four to six weeks (Obstructive sleep apnea evaluation)
Lico Eubanks MD [Active] - 06/21/24 1:30 pm
Matthew Moura DO [Family Provider] - (Please make an appointment in four to six weeks. )
Prescriptions:
New
Eliquis 5 mg Tablet
5 mg PO BID Qty: 60 1RF
sacubitril-valsartan [Entresto] 24-26 mg Tablet
1 tab PO BID Qty: 60 1RF
acetaminophen 325 mg Tablet
650 mg PO Q4HPRN PRN (Reason: mild pain,headache,temp >101F ) Qty: 0 0RF
Ozempic 0.25 mg or 0.5 mg (2 mg/3 mL) pen injector
0.25 mg SC QWEEK Qty: 3 3RF
Rx Instructions:
for 4 weeks
metformin 1,000 mg tablet
1,000 mg PO BID Qty: 60 2RF
amiodarone 200 mg tablet
200 mg PO BID Qty: 60 1RF
furosemide 40 mg Tablet
40 mg PO DAILY Qty: 20 0RF
pantoprazole 40 mg Tablet,Delayed Release (Dr/Ec)
40 mg PO DAILY Qty: 30 1RF
Continued
multivitamin Tablet
1 tab PO DAILY
metoprolol succinate 100 mg Tablet Extended Release 24 Hr
100 mg PO DAILY
vitamin B complex Capsule
1 cap PO DAILY
cholecalciferol (vitamin D3) [Vitamin D3] 125 mcg (5,000 unit) Tablet
125 mcg PO DAILY
tramadol 50 mg Tablet
50 mg PO DAILYPRN PRN (Reason: pain)
guaifenesin [Mucinex] 600 mg Tablet Extended Release 12hr
600 mg PO DAILYPRN PRN (Reason: congestion)
aspirin 81 mg Tablet,Chewable
81 mg PO DAILY
fluticasone propionate [Flonase Allergy Relief] 50 mcg/actuation [place],Suspension
1 spray INTRANASAL BIDPRN PRN (Reason: congestion)
atorvastatin 40 mg tablet
40 mg PO QPM Qty: 90 10RF
Jardiance 25 mg Tablet
25 mg PO DAILY Qty: 0 0RF
Prevagen
1 dose PO DAILY Qty: 0 0RF
Discontinued
losartan 100 mg Tablet
100 mg PO DAILY
nitroglycerin 0.4 mg tablet, sublingual
0.4 mg sublingual [id number] PRN (Reason: chest pain) Qty: 25 5RF
Discharge Orders:
Discharge Patient (As Directed); Ordered 05/24/24
Ordered By: Dinora Zamora
Discharge Date and Time
Print Language: GERMAN
--- NOTE | 2024-05-24 13:09 | W.PN.UPDATE ---
Update Note
Progress Note Update
No pacing required. 2 V-wires clipped to skin level
--- NOTE | 2024-05-24 14:41 | PTCARENOTE ---
Pt showered self with CHG soap; IV and bus driver/monitor removed; discharge paperwork gone over with and patient; all questions answered and pt discharged home with .
== END 2024-05-24 14:50 | disposition home or self-care (01) | DRG 235 ==
LOC: CVICU 05:06
PROVIDERS: Anesthesiology; Clinical Nurse Specialist Acute Care; Physician Assistant Medical; Physician Assistant Surgical; ADMITTING PHYSICIAN Thoracic Surgery (Cardiothoracic Vascular Surgery); CONSULT PHYSICIAN Internal Medicine Critical Care Medicine; FAMILY PHYSICIAN Family Medicine
PROC: 5A1221Z Performance of Cardiac Output, Continuous (ICD-10-PCS; 2024-05-18)
PROC: 021109W Bypass Coronary Artery, Two Arteries from Aorta with Autologous Venous Tissue, Open Approach (ICD-10-PCS; 2024-05-18)
PROC: B24BZZ4 Ultrasonography of Heart with Aorta, Transesophageal (ICD-10-PCS; 2024-05-18)
PROC: 02C00ZZ Extirpation of Matter from Coronary Artery, One Artery, Open Approach (ICD-10-PCS; 2024-05-18)
PROC: 30233R1 Transfusion of Nonautologous Platelets into Peripheral Vein, Percutaneous Approach (ICD-10-PCS; 2024-05-18)
PROC: 02100ZC Bypass Coronary Artery, One Artery from Thoracic Artery, Open Approach (ICD-10-PCS; 2024-05-18)
PROC: 06BP4ZZ Excision of Right Saphenous Vein, Percutaneous Endoscopic Approach (ICD-10-PCS; 2024-05-18)
PROC: 02L70CK Occlusion of Left Atrial Appendage with Extraluminal Device, Open Approach (ICD-10-PCS; 2024-05-18)
PROC: 5A09357 Assistance with Respiratory Ventilation, Less than 24 Consecutive Hours, Continuous Positive Airway Pressure (ICD-10-PCS; 2024-05-19)
PROC: 30233N1 Transfusion of Nonautologous Red Blood Cells into Peripheral Vein, Percutaneous Approach (ICD-10-PCS; 2024-05-20)
DX: I25.10 Atherosclerotic heart disease of native coronary artery without angina pectoris (principal); I50.21 Acute systolic (congestive) heart failure; J95.1 Acute pulmonary insufficiency following thoracic surgery; Z68.41 Body mass index [BMI] 40.0-44.9, adult; I45.2 Bifascicular block; N17.9 Acute kidney failure, unspecified; I47.20 Ventricular tachycardia, unspecified; D62 Acute posthemorrhagic anemia; D68.9 Coagulation defect, unspecified; E87.29 Other acidosis; E87.1 Hypo-osmolality and hyponatremia; J98.11 Atelectasis; I97.130 Postprocedural heart failure following cardiac surgery; I47.19 Other supraventricular tachycardia; Y83.2 Surgical operation with anastomosis, bypass or graft as the cause of abnormal reaction of the patient, or of later complication, without mention of misadventure at the time of the procedure; I34.0 Nonrheumatic mitral (valve) insufficiency; N18.30 Chronic kidney disease, stage 3 unspecified; E11.22 Type 2 diabetes mellitus with diabetic chronic kidney disease; I49.3 Ventricular premature depolarization; E78.5 Hyperlipidemia, unspecified; F10.21 Alcohol dependence, in remission; I12.9 Hypertensive chronic kidney disease with stage 1 through stage 4 chronic kidney disease, or unspecified chronic kidney disease; I25.5 Ischemic cardiomyopathy; N99.0 Postprocedural (acute) (chronic) kidney failure; E66.813 Obesity, class 3; D69.59 Other secondary thrombocytopenia; I48.91 Unspecified atrial fibrillation; E86.1 Hypovolemia; L89.819 Pressure ulcer of head, unspecified stage; Z79.82 Long term (current) use of aspirin; Z79.84 Long term (current) use of oral hypoglycemic drugs; Z79.899 Other long term (current) drug therapy; Z82.49 Family history of ischemic heart disease and other diseases of the circulatory system; Z85.46 Personal history of malignant neoplasm of prostate; Z86.73 Personal history of transient ischemic attack (TIA), and cerebral infarction without residual deficits; Z87.442 Personal history of urinary calculi
CPT/HCPCS: 88304; 88305; 88311; 36415; 71045; 71046; 80048; 80053; 81003; 81015; 82248; 82330; 82565; 82805; 82810; 82947; 82962; 83036; 83605; 83735; 84132; 84302; 84520; 85014; 85018; 85025; 85027; 85049; 85347; 85384; 85576; 85610; 85730; 86803; 86850; 86900; 86901; 86920; 87070; 93005; 93312; 93320; 93325; 93880; 94002; 94010; 94060; 97116; 97163; 97167; 97530; 97535; C1713; P9016; P9073

== ENCOUNTER 2024-07-01 10:17 | Day surgery (SDC) | payer OTHER, SELFPAY ==
[2024-07-01 12:07] VITALS: BMI 37.9
== END 2024-07-01 12:42 ==
LOC: CATH 10:17
PROVIDERS: ATTENDING PHYSICIAN Internal Medicine; FAMILY PHYSICIAN Family Medicine; OTHER PHYSICIAN Internal Medicine Cardiovascular Disease
DX: I48.0 Paroxysmal atrial fibrillation (principal); I47.20 Ventricular tachycardia, unspecified; I25.10 Atherosclerotic heart disease of native coronary artery without angina pectoris; I45.10 Unspecified right bundle-branch block; I12.9 Hypertensive chronic kidney disease with stage 1 through stage 4 chronic kidney disease, or unspecified chronic kidney disease; E11.22 Type 2 diabetes mellitus with diabetic chronic kidney disease; N18.30 Chronic kidney disease, stage 3 unspecified; E78.5 Hyperlipidemia, unspecified; Z79.82 Long term (current) use of aspirin; Z79.01 Long term (current) use of anticoagulants; Z79.85 Long-term (current) use of injectable non-insulin antidiabetic drugs; Z79.84 Long term (current) use of oral hypoglycemic drugs
CPT/HCPCS: 92960; 93005

== ENCOUNTER → 2024-09-01 12:38 | Outpatient (REF) | payer OTHER, SELFPAY ==
--- NOTE | 2024-09-01 14:20 | CARDSERVLU ---
Echocardiogram with Lumason completed after protocol screening completed. Allergies verified.
Patent IV site: _Right forearm 22 GPC by min-IV team____
IV site flushed with 0.9% NaCl pre and post administration.
Diluted bolus method utilized to enhance visualization of ventricular bain.
Total volume given: ___3_ mL
Patient tolerated all procedures well without complications.
Heplock D/C ed at 1357, site clear, no redness, no edema. Pressure held for few minutes as pt on anticoagulants. No bleeding, 2x2 applied and taped. Pt offers no complaints.
== END ==
LOC: RCS 12:38
PROVIDERS: ATTENDING PHYSICIAN Internal Medicine Cardiovascular Disease; FAMILY PHYSICIAN Family Medicine
DX: I49.3 Ventricular premature depolarization (principal); I47.29 Other ventricular tachycardia
CPT/HCPCS: 93306; Q9950

== ENCOUNTER 2024-12-17 19:58 | Emergency (ER) | payer OTHER, SELFPAY ==
[2024-12-17 20:14] VITALS: BP 141/76
[2024-12-18 00:47] VITALS: BMI 35.9
[2024-12-18] MEDS: ANCEF 10 IV (01:43)
[2024-12-18 01:55] VITALS: BP 145/86
--- NOTE | 2024-12-18 02:38 | ED.GENMED ---
History of Present Illness
General
Chief Complaint: Musculo-Skeletal Complaint
Source: patient
Exam Limitations: none
Time Seen by Provider: 12/18/24 00:39
Nursing documentation reviewed up to this point in time: agreed with
History of Present Illness
History of Present Illness:
74-year-old male past medical history of A-fib currently on Eliquis, CAD hypertension diabetes presenting to the emergency department today with concerns of an injury from a cast iron sink that hit him in the right middle finger prior to arrival.
Initially went to urgent care and sent to the ER for further assessment. Denies numbness weakness or additional injuries. Unsure when his last tetanus shot was.
Past History
Past History
ED Past Medical History: NIDDM and Other (Kidney stone)
ED Past Surgical History: Orthopedic and Urological
Social History
Tobacco: Non-smoker
Review of Systems
Review of Systems
Allergies reviewed?: Yes
All Other Systems: ROS reviewed and negative except as documented in HPI and ROS
Phy Exam
Physical Exam
Physical Exam:
GENERAL: Alert , in no apparent distress
EYE: pupils equal and reactive
NECK: Supple, no significant adenopathy.
ENT: o/p clr, mmm.
CARDIAC: Regular rate and rhythm .
LUNGS: Clear breath sounds bilaterally, no acute respiratory distress, no wheezes/rales/rhonchi
ABDOMEN: Soft, without focal tenderness, no r/g, no cvat
NEUROLOGICAL: Alert and oriented, no focal neuro deficits
SKIN: Right middle finger on the proximal ulnar aspect 2.5 cm laceration. Warm and dry, skin intact.
MUSCULOSKELETAL: No edema, well perfused.
PSYCH: Normal and appropriate interaction.
Course
Orders/Labs/Results
Orders:
Orders
12/17/24 20:17
CR Hand - Right Min 3 Views Urgent
Comment:
Reason For Exam: middle finger injury with laceration
12/18/24 01:28
CeFAZolin 2 GRAM [Ancef] 2 grams in 10 ml IV NOW
12/18/24 02:38
Tetanus/Diphth/Acelpertussis [Adacel] 0.5 ml IM .ONCE ONE
Vital Signs
Initial and Last Documented VS:
Initial Vital Signs
Temp Pulse Resp BP Pulse Ox
98.4 F 66 20 141/76 97
12/17/24 20:14 12/17/24 20:14 12/17/24 20:14 12/17/24 20:14 12/17/24 20:14
Last Documented Vital Signs
Temp Pulse Resp BP Pulse Ox
98.4 F 64 18 141/83 99
12/17/24 20:14 12/18/24 02:57 12/18/24 02:57 12/18/24 02:57 12/18/24 02:57
Procedures
Laceration Closure
Right Ulnar Third Finger:
Status of Wound: clean
Size of Wound in cm: 2.5
Description of Wound Edges: ragged and macerated
Preparation: cleaned with saline
Anesthesia: 1% Lidocaine and Digital-Regional
Revision/Debridement: minor revision
Wound exploration: explored to base- no FB
Type of Closure: single layer closure and interrupted sutures
Skin Closure Material: 3-0 nylon
Number of sutures: 3
MDM/Problems Addressed
MDM/Problems Addressed:
74-year-old male presenting to the emergency department today with concerns of laceration to the right middle finger on the ulnar aspect from a cast iron sink that hit him on the finger. Given updated tetanus shot otherwise area was cleaned
thoroughly. Case was discussed with orthopedics concerning there appeared to be a potential bone fragment on the x-ray. They recommended oral antibiotics loose closure and close outpatient follow-up. Return precautions given.
*Pulse Oximetry
SaO2: 99
Oxygen Mode of Delivery: Room air
Patient hypoxic: no (99)
*Critical Care Note
Total Time (30-74mins, 75-104mins- exclusive of procedures): Not Applicable
ED Attending Note
-
Portions of this chart may have been created with voice recognition software.� Occasional wrong word or��sound alike� substitutions may have occurred due to the inherent limitations of voice recognition software.
Discharge Plan
Departure
Patient Disposition: Home (Routine Discharge)
Date of Disposition: 12/18/24
Time of Disposition: 02:38
Patient with high blood pressure during this ER visit?: No
Condition: Good
Covid-19: Not Applicable
Discharge Problem:
Avulsion fracture of thumb, Laceration of thumb
Instructions: Finger Fracture ED, Stitches - ED discharge instructions
Prescriptions:
New
cephalexin 500 mg capsule
500 mg PO QID 5 Days Qty: 20 0RF
No Action
multivitamin Tablet
1 tab PO DAILY
metoprolol succinate 100 mg Tablet Extended Release 24 Hr
100 mg PO DAILY
vitamin B complex Capsule
1 cap PO DAILY
cholecalciferol (vitamin D3) [Vitamin D3] 125 mcg (5,000 unit) Tablet
125 mcg PO DAILY
tramadol 50 mg Tablet
50 mg PO DAILYPRN PRN (Reason: pain)
guaifenesin [Mucinex] 600 mg Tablet Extended Release 12hr
600 mg PO DAILYPRN PRN (Reason: congestion)
aspirin 81 mg Tablet,Chewable
81 mg PO DAILY
fluticasone propionate [Flonase Allergy Relief] 50 mcg/actuation [place],Suspension
1 spray INTRANASAL BIDPRN PRN (Reason: congestion)
Eliquis 5 mg Tablet
5 mg PO BID Qty: 60 1RF
sacubitril-valsartan [Entresto] 24-26 mg Tablet
1 tab PO BID Qty: 60 1RF
acetaminophen 325 mg Tablet
650 mg PO Q4HPRN PRN (Reason: mild pain,headache,temp >101F ) Qty: 0 0RF
Ozempic 0.25 mg or 0.5 mg (2 mg/3 mL) pen injector
0.25 mg SC QWEEK Qty: 3 3RF
Rx Instructions:
for 4 weeks
metformin 1,000 mg tablet
1,000 mg PO BID Qty: 60 2RF
amiodarone 200 mg tablet
200 mg PO BID Qty: 60 1RF
furosemide 40 mg Tablet
40 mg PO DAILY Qty: 20 0RF
pantoprazole 40 mg Tablet,Delayed Release (Dr/Ec)
40 mg PO DAILY Qty: 30 1RF
atorvastatin 40 mg tablet
40 mg PO QPM Qty: 90 10RF
Jardiance 25 mg Tablet
25 mg PO DAILY Qty: 0 0RF
Prevagen
1 dose PO DAILY Qty: 0 0RF
Referrals:
Higinio Vazquez MD [Active, Orthopedics] - Follow up in 5-7 days
Matthew Moura DO [Family Provider, Family Practice]
Activity Restrictions/Additional Instructions:
You came to the emergency department today with concerns of an injury to your finger. This was cleaned and closed with 3 stitches. Please follow closely with orthopedics for further assessment. Please also take the prescribed antibiotics.
Immediately return for any worsening, new or concerning symptoms.
Interventions
Interventions:
*Risk Screen - Suicide Last Done: 12/17/24 20:14
*General Assessment Last Done: 12/17/24 20:14
*Neglect/Abuse Screening Last Done: 12/17/24 20:14
*ED- Fall Risk Assessment Last Done: 12/18/24 00:47
*ED COVID-19 Vaccine History Last Done: 12/18/24 01:45
*Nursing Disposition Last Done: 12/18/24 02:57
ED-Musculoskeletal Assessment Last Done: 12/18/24 00:49
Discharge Date and Time
Discharge Date/Time: 08/17/25 02:58
Print Language: CUBAN
[2024-12-18] MEDS: ADACEL 0.5 ML IM (02:44)
[2024-12-18 02:56] VITALS: BP 141/83
[2024-12-18 02:57] VITALS: BP 141/83
== END 2024-12-18 02:58 | disposition home or self-care (01) ==
LOC: EMR 19:58
PROVIDERS: EMERGENCY PHYSICIAN Student in an Organized Health Care Education/Training Program; FAMILY PHYSICIAN Family Medicine
DX: S62.501A Fracture of unspecified phalanx of right thumb, initial encounter for closed fracture (principal); S61.011A Laceration without foreign body of right thumb without damage to nail, initial encounter; W22.8XXA Striking against or struck by other objects, initial encounter; I25.10 Atherosclerotic heart disease of native coronary artery without angina pectoris; I10 Essential (primary) hypertension; E11.9 Type 2 diabetes mellitus without complications; I48.91 Unspecified atrial fibrillation; Z79.01 Long term (current) use of anticoagulants; Z23 Encounter for immunization
CPT/HCPCS: 12001; 96374; 90471; 99284; 73130; 90715

== ENCOUNTER → 2024-12-21 10:16 | Outpatient (REF) | payer OTHER, SELFPAY | LOC: RCS 10:16 | PROVIDERS: ATTENDING PHYSICIAN Internal Medicine Cardiovascular Disease; FAMILY PHYSICIAN Family Medicine | DX: I50.20 Unspecified systolic (congestive) heart failure (principal) | CPT/HCPCS: 93308; 93321; 93325; Q9950 ==